=== PATIENT | male | born 1970 | race Two or more races ===

== ENCOUNTER 2017-06-23 10:01 | Emergency (ER) | payer MEDICAID, OTHER ==
[~2017-06-23] VITALS: Ht 170.2 cm; Wt 80.7 kg
[2017-06-23 10:37] VITALS: BP 138/88
[2017-06-23 11:40] LABS: Basophils # (auto) 0 uL; Basophils % (auto) 0.3 % (0.0-2.0); Eosinophils # (auto) 0.2 uL; Hematocrit 48.4 % (41.0-53.0); Hemoglobin 16.4 g/dL (13.5-17.5); Lymphocytes # (auto) 2.4 uL; Lymphocytes % (auto) 31.8 % (10.0-50.0); Mean Corpuscular Hemoglobin 30.1 pg (28.0-32.0); Mean Corpuscular Volume 88.7 fL (80.0-100.0); Monocytes # (auto) 0.5 uL; Monocytes % (auto) 6.5 % (0.0-12.0); Neutrophils # (auto) 4.5 uL; Neutrophils % (auto) 59.4 % (37.0-80.0); Platelet Count (auto) 271 10^3/uL (140-450); Red Blood Cells 5.45 10^6/uL (4.5-5.90); Red Cell Distribution Width 13.2 % (11.8-14.3); White Blood Cell 7.6 10^3/uL (4.4-10.8)
[2017-06-23 12:33] LABS: BUN/Creatinine Ratio 16.2; Bilirubin, Total 0.5 mg/dL (0.2-1.0); Calcium 9.5 mg/dL (8.5-10.1); Potassium 4.2 mmol/L (3.5-5.1); Total Protein 8.4 g/dL (6.4-8.2)
== END 2017-06-23 12:58 | disposition home or self-care (01) ==
LOC: ER 10:01
DX: R20.0 Anesthesia of skin (principal); E11.9 Type 2 diabetes mellitus without complications; E78.00 Pure hypercholesterolemia, unspecified; I10 Essential (primary) hypertension; F17.210 Nicotine dependence, cigarettes, uncomplicated
CPT/HCPCS: 36415; 70450; 80053; 85025; 93005

== ENCOUNTER 2023-12-26 14:42 | Inpatient (IN) | payer OTHER ==
[~2023-12-26] VITALS: Ht 170.2 cm; Wt 99.8 kg
[~2023-12-26 14:42] MED LIST: DAPA5TAB2 PO; DICY10CA PO; LEVO500T91 PO; SIMV20TA20 PO; ZOFR4T PO
[2023-12-26] MEDS: HYDROcodone-ACET 10/325MG TAB PO ONE (15:53)
[2023-12-26] MEDS: SODIUM CHLORIDE 0.9% 2,000 ML IV ONE (16:18)
[2023-12-26 16:32] LABS: Basophils # (auto) 0 10 ^3/uL (0-0.2); Basophils % (auto) 0.2 % (0.0-2.0); Eosinophils # (auto) 0 10 ^3/uL (0-0.8); Hematocrit 37.9 % (41.0-53.0); Hemoglobin 12.5 g/dL (13.5-17.5); Lymphocytes # (auto) 0.9 10 ^3/uL (0.4-5.4); Lymphocytes % (auto) 5.2 % (10.0-50.0); Mean Corpuscular Hemoglobin 29.4 pg (28.0-32.0); Mean Corpuscular Volume 88.8 fL (80.0-100.0); Monocytes # (auto) 0.4 10 ^3/uL (0-1.3); Monocytes % (auto) 2.3 % (0.0-12.0); Neutrophils # (auto) 15.8 10 ^3/uL (1.6-8.6); Neutrophils % (auto) 92.3 % (37.0-80.0); Platelet Count (auto) 419 10^3/uL (140-450); Red Blood Cells 4.27 10^6/uL (4.5-5.90); Red Cell Distribution Width 14.3 % (11.8-14.3); White Blood Cell 17.1 10^3/uL (4.4-10.8)
[2023-12-26 16:49] LABS: Urine Bacteria FEW /hpf (None Seen); Urine Blood 2+ /uL (Negative); Urine Clarity Turbid (Clear); Urine Color Light-Orange (Yellow); Urine Mucus FEW (None Seen); Urine Protein, UAD 4+ (Negative); Urine Specific Gravity 1.041 (1.001-1.035); Urine Urobilinogen Normal (Negative); Urine WBC 5 /hpf (0 - 3)
[2023-12-26 16:53] LABS: Albumin 3.9 g/dL (3.2-4.8); Alkaline Phosphatase 127 U/L (46-116); Anion Gap 7 (5-15); Aspartate Aminotransferase 11 U/L (13-40); BUN/Creatinine Ratio 9.7 (10.0-20.0); Blood Urea Nitrogen 17 mg/dL (9-23); Carbon Dioxide 21 mmol/L (20-30); Chloride 102 mmol/L (98-107); Glucose 291 mg/dL (74-106); Lipase 28 U/L (12-53); Potassium 4.3 mmol/L (3.5-5.1); Sodium 130 mmol/L (136-145)
[2023-12-26 16:54] LABS: Bilirubin, Total 0.9 mg/dL (0.2-1.0); Total Protein 7.5 g/dL (5.7-8.2)
[2023-12-26 17:00] LABS: Alanine Aminotransferase < 9 U/L (7-40)
[2023-12-26] MEDS: PIPERACILLIN-TAZOB 3.375GM 100 ML IV ONE (17:41)
[2023-12-26] MEDS: SODIUM CHLORIDE 0.9% 1,000 ML IV ONE (18:30)
[2023-12-26] MEDS: IOHEXOL 300 MG/ML 100ML BOTTLE IJ ONE (19:52)
[2023-12-26] MEDS: SODIUM BICARB 8.4% 50Meq/50ml SYR Vial IV ONE (21:12)
[2023-12-26] MEDS ORDERED: ACETAMINOPHEN 325 MG TAB PO PRN (22:30)
[2023-12-26] MEDS ORDERED: DEXTROSE (50%) 50ML SYRG IV PRN (22:30)
[2023-12-26] MEDS: SODIUM CHLORIDE 0.9% 1,000 ML IV SCH (22:45)
[2023-12-26] MEDS: HYDROcodone-ACET 5/325MG TAB PO PRN (22:58)
[2023-12-26] MEDS ORDERED: MORPHINE SULFATE INJ 2 MG/ml SYRG IV PRN (23:45)
[2023-12-26] MEDS ORDERED: NITROGLYCERIN 0.4 MG SL TAB SL PRN (23:45)
[2023-12-27] VITALS (8 sets, daily range): BP systolic 123–148; BP diastolic 59–66; PULSE 87–96; RESP 16–20; TEMP 96.8–99.4; O2SAT 90–96
[2023-12-27] MEDS: PIPERACILLIN-TAZOB 3.375GM 100 ML IV SCH (02:22)
[2023-12-27 05:35] LABS: Basophils # (auto) 0 10 ^3/uL (0-0.2); Basophils % (auto) 0.2 % (0.0-2.0); Eosinophils # (auto) 0 10 ^3/uL (0-0.8); Hematocrit 32.3 % (41.0-53.0); Lymphocytes # (auto) 1.1 10 ^3/uL (0.4-5.4); Lymphocytes % (auto) 6.1 % (10.0-50.0); Mean Corpuscular Hemoglobin 30.3 pg (28.0-32.0); Mean Corpuscular Volume 89.1 fL (80.0-100.0); Monocytes # (auto) 0.6 10 ^3/uL (0-1.3); Monocytes % (auto) 3.3 % (0.0-12.0); Neutrophils # (auto) 16.6 10 ^3/uL (1.6-8.6); Neutrophils % (auto) 90.4 % (37.0-80.0); Platelet Count (auto) 352 10^3/uL (140-450); Red Blood Cells 3.63 10^6/uL (4.5-5.90); Red Cell Distribution Width 14.3 % (11.8-14.3); White Blood Cell 18.3 10^3/uL (4.4-10.8)
[2023-12-27 05:54] LABS: Albumin 3.4 g/dL (3.2-4.8); Alkaline Phosphatase 110 U/L (46-116); Anion Gap 4 (5-15); Aspartate Aminotransferase 10 U/L (13-40); Blood Urea Nitrogen 22 mg/dL (9-23); Calcium 8.7 mg/dL (8.7-10.4); Carbon Dioxide 26 mmol/L (20-30); Chloride 103 mmol/L (98-107); Glucose 252 mg/dL (74-106); Potassium 4.6 mmol/L (3.5-5.1); Sodium 133 mmol/L (136-145)
[2023-12-27 05:55] LABS: Bilirubin, Total 0.7 mg/dL (0.2-1.0); Total Protein 6.6 g/dL (5.7-8.2)
[2023-12-27 06:01] LABS: Alanine Aminotransferase < 9 U/L (7-40)
[2023-12-27] MEDS: InsuLIN REG 1unit/0.01ml Soln (100units/ml) SC SCH ×2 (07:00→21:24)
[2023-12-27] MEDS: ACCU-CHEK COMFORT CURVE STRIP VI SCH (07:29)
[2023-12-27] MEDS ORDERED: AMLO1TAB23 PO (11:31)
[2023-12-27] MEDS ORDERED: SILD100T73 PO (11:31)
[2023-12-27] MEDS ORDERED: METF-372 PO (11:31)
[2023-12-27] MEDS ORDERED: GLIP10TA9 PO (11:31)
[2023-12-27] MEDS ORDERED: ATE50T PO (11:31)
[2023-12-27] MEDS ORDERED: PIOG1TAB37 PO (11:31)
[2023-12-27] MEDS ORDERED: DAPA1TAB4 PO (11:31)
[2023-12-27] MEDS ORDERED: LISI40TA16 PO (11:31)
[2023-12-27] MEDS: SODIUM CHLORIDE 0.9% 1,000 ML IV SCH (15:42)
[2023-12-28] VITALS (9 sets, daily range): BP systolic 97–136; BP diastolic 65–69; PULSE 75–105; RESP 16–22; TEMP 97.9–99.6; O2SAT 93–97
[2023-12-28 07:21] LABS: Basophils # (auto) 0 10 ^3/uL (0-0.2); Basophils % (auto) 0.2 % (0.0-2.0); Eosinophils # (auto) 0 10 ^3/uL (0-0.8); Eosinophils % (auto) 0.2 % (0.0-7.0); Hematocrit 29.7 % (41.0-53.0); Hemoglobin 9.7 g/dL (13.5-17.5); Lymphocytes # (auto) 0.9 10 ^3/uL (0.4-5.4); Lymphocytes % (auto) 5.7 % (10.0-50.0); Mean Corpuscular Hemoglobin 29.1 pg (28.0-32.0); Mean Corpuscular Hgb Conc. 32.8 g/dL (32.0-36.0); Mean Corpuscular Volume 88.7 fL (80.0-100.0); Monocytes # (auto) 0.4 10 ^3/uL (0-1.3); Monocytes % (auto) 2.5 % (0.0-12.0); Neutrophils # (auto) 15.3 10 ^3/uL (1.6-8.6); Neutrophils % (auto) 91.4 % (37.0-80.0); Nucleated Red Blood Cells % 0.1 %; Platelet Count (auto) 357 10^3/uL (140-450); Red Blood Cells 3.35 10^6/uL (4.5-5.90); Red Cell Distribution Width 14.2 % (11.8-14.3); White Blood Cell 16.7 10^3/uL (4.4-10.8)
[2023-12-28 07:23] LABS: Albumin 3.2 g/dL (3.2-4.8); Alkaline Phosphatase 95 U/L (46-116); Anion Gap 7 (5-15); Aspartate Aminotransferase 9 U/L (13-40); BUN/Creatinine Ratio 11.6 (10.0-20.0); Bilirubin, Total 0.5 mg/dL (0.2-1.0); Blood Urea Nitrogen 27 mg/dL (9-23); Calcium 8.2 mg/dL (8.7-10.4); Carbon Dioxide 22 mmol/L (20-30); Chloride 104 mmol/L (98-107); Glucose 241 mg/dL (74-106); Sodium 133 mmol/L (136-145); Total Protein 6.4 g/dL (5.7-8.2)
[2023-12-28 07:24] LABS: Alanine Aminotransferase < 9 U/L (7-40)
[2023-12-28 09:04] LABS: INR 1.1 (0.9-1.15); Partial Thromboplastin Time 27.1 SEC (24.5-34.5); Prothrombin Time 11.6 sec (9.3-11.8)
[2023-12-28] MEDS: PANTOPRAZOLE 40 MG/10 ML VIAL INJ IV SCH (10:13)
[2023-12-28] MEDS: HYDROcodone-ACET 10/325MG TAB PO PRN (10:19)
[2023-12-28] MEDS: AMIODARONE BOLUS KIT 100 ML IV ONE (13:52)
[2023-12-28] MEDS: AMIODARONE 450mg/250ml AE 250 ML IV SCH ×2 (14:06→20:01)
[2023-12-29] VITALS (7 sets, daily range): BP systolic 112–149; BP diastolic 60–72; PULSE 59–115; RESP 15–19; TEMP 97.9–98.7; O2SAT 94–98
[2023-12-29 06:06] LABS: Basophils # (auto) 0 10 ^3/uL (0-0.2); Basophils % (auto) 0.3 % (0.0-2.0); Eosinophils # (auto) 0.3 10 ^3/uL (0-0.8); Eosinophils % (auto) 2.2 % (0.0-7.0); Hematocrit 31.1 % (41.0-53.0); Hemoglobin 10.2 g/dL (13.5-17.5); Lymphocytes # (auto) 0.9 10 ^3/uL (0.4-5.4); Lymphocytes % (auto) 5.9 % (10.0-50.0); Mean Corpuscular Hemoglobin 29.6 pg (28.0-32.0); Mean Corpuscular Hgb Conc. 32.7 g/dL (32.0-36.0); Mean Corpuscular Volume 90.7 fL (80.0-100.0); Monocytes # (auto) 0.5 10 ^3/uL (0-1.3); Monocytes % (auto) 3.5 % (0.0-12.0); Neutrophils % (auto) 88.1 % (37.0-80.0); Platelet Count (auto) 438 10^3/uL (140-450); Red Blood Cells 3.43 10^6/uL (4.5-5.90); White Blood Cell 15.8 10^3/uL (4.4-10.8)
[2023-12-29 06:25] LABS: Albumin 3.4 g/dL (3.2-4.8); Alkaline Phosphatase 103 U/L (46-116); Anion Gap 3 (5-15); Aspartate Aminotransferase 12 U/L (13-40); BUN/Creatinine Ratio 10.4 (10.0-20.0); Bilirubin, Total 0.4 mg/dL (0.2-1.0); Blood Urea Nitrogen 26 mg/dL (9-23); Calcium 9.1 mg/dL (8.7-10.4); Carbon Dioxide 23 mmol/L (20-30); Chloride 106 mmol/L (98-107); Glucose 216 mg/dL (74-106); Potassium 4.4 mmol/L (3.5-5.1); Sodium 132 mmol/L (136-145); Total Protein 6.9 g/dL (5.7-8.2)
[2023-12-29 06:26] LABS: Alanine Aminotransferase < 9 U/L (7-40)
[2023-12-29] MEDS: AMIODARONE HCL 200 MG TAB PO SCH (10:09)
[2023-12-29] MEDS: D5W/SOD CHLO 0.9% 1,000 ML IV SCH (12:59)
[2023-12-30] VITALS (8 sets, daily range): BP systolic 125–154; BP diastolic 60–75; PULSE 65–73; RESP 17–22; TEMP 97.7–98; O2SAT 93–97
[2023-12-30] MEDS: PIPERACILLIN-TAZOB 3.375GM 100 ML IV SCH (04:32)
[2023-12-30 06:29] LABS: Basophils # (auto) 0 10 ^3/uL (0-0.2); Basophils % (auto) 0.3 % (0.0-2.0); Eosinophils # (auto) 0.4 10 ^3/uL (0-0.8); Eosinophils % (auto) 3.3 % (0.0-7.0); Hematocrit 29.4 % (41.0-53.0); Hemoglobin 9.5 g/dL (13.5-17.5); Lymphocytes % (auto) 9.1 % (10.0-50.0); Mean Corpuscular Hemoglobin 29.2 pg (28.0-32.0); Mean Corpuscular Hgb Conc. 32.3 g/dL (32.0-36.0); Mean Corpuscular Volume 90.4 fL (80.0-100.0); Monocytes # (auto) 0.8 10 ^3/uL (0-1.3); Monocytes % (auto) 7.1 % (0.0-12.0); Neutrophils # (auto) 8.9 10 ^3/uL (1.6-8.6); Neutrophils % (auto) 80.2 % (37.0-80.0); Platelet Count (auto) 417 10^3/uL (140-450); Red Blood Cells 3.25 10^6/uL (4.5-5.90); Red Cell Distribution Width 14.7 % (11.8-14.3); White Blood Cell 11.1 10^3/uL (4.4-10.8)
[2023-12-30 06:47] LABS: Alkaline Phosphatase 80 U/L (46-116); Anion Gap 6 (5-15); Aspartate Aminotransferase < 8 U/L (13-40); Bilirubin, Total 0.4 mg/dL (0.2-1.0); Blood Urea Nitrogen 25 mg/dL (9-23); Calcium 8.6 mg/dL (8.7-10.4); Carbon Dioxide 23 mmol/L (20-30); Chloride 107 mmol/L (98-107); Glucose 161 mg/dL (74-106); Potassium 3.9 mmol/L (3.5-5.1); Sodium 136 mmol/L (136-145); Total Protein 6.4 g/dL (5.7-8.2)
[2023-12-30 07:03] LABS: Alanine Aminotransferase < 9 U/L (7-40)
[2023-12-30 08:12] LABS: Creatinine, Urine 115.37 mg/dL (30.0-125.0)
[2023-12-30 08:15] LABS: Protein, Urine 607.3 mg/dL (0.0-11.9)
[2023-12-30 11:51] LABS: COVID19 ANTIGEN SOFIA FIA NEGATIVE (NEGATIVE)
[2023-12-30 14:34] LABS: Urine Bacteria None Seen /hpf (None Seen)
[2023-12-30 14:45] LABS: Urine Blood 1+ /uL (Negative); Urine Clarity Turbid (Clear); Urine Color Yellow (Yellow); Urine Protein, UAD 3+ (Negative); Urine Specific Gravity 1.021 (1.001-1.035); Urine Urobilinogen Normal (Negative); Urine WBC 8 /hpf (0 - 3)
[2023-12-30] MEDS: FUROSEMIDE 40 MG/4 ML VIAL IV ONE (16:16)
[2023-12-31] VITALS (10 sets, daily range): BP systolic 140–178; BP diastolic 64–85; PULSE 66–83; RESP 16–20; TEMP 97.8–98.6; O2SAT 95–100
[2023-12-31 06:14] LABS: Mean Corpuscular Volume 89.4 fL (80.0-100.0); Monocytes # (auto) 0.9 10 ^3/uL (0-1.3)
[2023-12-31 06:16] LABS: Basophils # (auto) 0.1 10 ^3/uL (0-0.2); Basophils % (auto) 0.5 % (0.0-2.0); Eosinophils # (auto) 0.4 10 ^3/uL (0-0.8); Eosinophils % (auto) 3.1 % (0.0-7.0); Hemoglobin 11.2 g/dL (13.5-17.5); Lymphocytes # (auto) 1.2 10 ^3/uL (0.4-5.4); Mean Corpuscular Hemoglobin 29.4 pg (28.0-32.0); Mean Corpuscular Hgb Conc. 32.9 g/dL (32.0-36.0); Monocytes % (auto) 7.5 % (0.0-12.0); Neutrophils # (auto) 9.7 10 ^3/uL (1.6-8.6); Neutrophils % (auto) 78.9 % (37.0-80.0); Platelet Count (auto) 477 10^3/uL (140-450); Red Cell Distribution Width 15.1 % (11.8-14.3); White Blood Cell 12.3 10^3/uL (4.4-10.8)
[2023-12-31 06:39] LABS: Albumin 3.3 g/dL (3.2-4.8); Alkaline Phosphatase 86 U/L (46-116); Anion Gap 7 (5-15); Aspartate Aminotransferase 10 U/L (13-40); BUN/Creatinine Ratio 9.2 (10.0-20.0); Bilirubin, Total 0.4 mg/dL (0.2-1.0); Blood Urea Nitrogen 22 mg/dL (9-23); Calcium 9.2 mg/dL (8.7-10.4); Carbon Dioxide 23 mmol/L (20-30); Chloride 103 mmol/L (98-107); Glucose 141 mg/dL (74-106); Sodium 133 mmol/L (136-145); Total Protein 7.1 g/dL (5.7-8.2)
[2023-12-31 06:49] LABS: Alanine Aminotransferase < 9 U/L (7-40)
[2023-12-31 08:06] LABS: Complement C3 147 mg/dL (82-167)
[2023-12-31] MEDS: POLYETHYLENE GLYCOL 17 GM PWDR PO ONE (09:58)
[2023-12-31] MEDS: FUROSEMIDE 40 MG/4 ML VIAL IV SCH (10:00)
[2023-12-31] MEDS: LIDOCAINE 5% TOPICAL PATCH TOP ONE (12:53)
[2023-12-31 14:06] LABS: Anti-Centromere B Antibody <0.2 AI (0.0-0.9); Anti-Jo-1 Antibody <0.2 AI (0.0-0.9); Anti-dsDNA Antibody <1 IU/mL (0-9); Antichromatin Antibody <0.2 AI (0.0-0.9); Antiscleroderma-70 Antibody <0.2 AI (0.0-0.9); RNP Antibody <0.2 AI (0.0-0.9); Sjogren's Anti-SS-A Antibody <0.2 AI (0.0-0.9); Sjogren's Anti-SS-B Antibody <0.2 AI (0.0-0.9); Smith Antibody <0.2 AI (0.0-0.9)
[2024-01-01] VITALS (8 sets, daily range): BP systolic 125–157; BP diastolic 59–72; PULSE 69–83; RESP 16–21; TEMP 97.5–98.7; O2SAT 92–99
[2024-01-01 06:13] LABS: Hematocrit 32.2 % (41.0-53.0); Hemoglobin 10.5 g/dL (13.5-17.5); Mean Corpuscular Hgb Conc. 32.6 g/dL (32.0-36.0); Mean Corpuscular Volume 88.8 fL (80.0-100.0); Platelet Count (auto) 439 10^3/uL (140-450); Red Blood Cells 3.62 10^6/uL (4.5-5.90); Red Cell Distribution Width 14.8 % (11.8-14.3)
[2024-01-01 06:14] LABS: Albumin 2.9 g/dL (3.2-4.8); Alkaline Phosphatase 71 U/L (46-116); Anion Gap 8 (5-15); Aspartate Aminotransferase 8 U/L (13-40); BUN/Creatinine Ratio 9.3 (10.0-20.0); Bilirubin, Total 0.4 mg/dL (0.2-1.0); Blood Urea Nitrogen 21 mg/dL (9-23); Calcium 8.7 mg/dL (8.7-10.4); Carbon Dioxide 24 mmol/L (20-30); Chloride 101 mmol/L (98-107); Glucose 136 mg/dL (74-106); Potassium 3.8 mmol/L (3.5-5.1); Sodium 133 mmol/L (136-145); Total Protein 6.4 g/dL (5.7-8.2)
[2024-01-01 06:16] LABS: Alanine Aminotransferase < 9 U/L (7-40)
[2024-01-01 06:22] LABS: Basophils % (manual) 0 (0.0-2.0); Blast Cells 0; Metamyelocytes % 0; Myelocytes % 0; Promyelocytes % 0; Reactive Lymphocytes 0
[2024-01-01 08:09] LABS: Band Neutrophils % (manual) 8; Eosinophils % (manual) 2 (0-7); Lymphocytes % (manual) 14 (10.0-50.0); Monocytes % (manual) 9 (0-12); Platelet Estimate Adequate
[2024-01-01] MEDS: LIDOCAINE 5% TOPICAL PATCH TOP SCH (09:40)
[2024-01-01] MEDS: POLYETHYLENE GLYCOL 17 GM PWDR PO PRN (12:13)
[2024-01-01] MEDS: LACTULOSE 20Gm/30ML SOLN PO ONE (18:03)
[2024-01-01 18:06] LABS: Antiglomerular BM Antibody <0.2 units (0.0-0.9); Antimyeloperoxidase (MPO) Ab <0.2 units (0.0-0.9); Antiproteinase 3 (PR-3) Ab <0.2 units (0.0-0.9)
[2024-01-02] VITALS (7 sets, daily range): BP systolic 127–163; BP diastolic 60–72; PULSE 19–102; RESP 18–20; TEMP 97.7–98.5; O2SAT 96–100
[2024-01-02] MEDS: ONDANSETRON HCL 4 MG/2 ML VIAL IV PRN (04:18)
[2024-01-02] MEDS: cloNIDine HCL 0.1 MG TAB PO PRN (04:19)
[2024-01-02 06:11] LABS: Hemoglobin 10.6 g/dL (13.5-17.5)
[2024-01-02 06:13] LABS: Hematocrit 32.4 % (41.0-53.0); Mean Corpuscular Hgb Conc. 32.7 g/dL (32.0-36.0); Mean Corpuscular Volume 88.6 fL (80.0-100.0); Platelet Count (auto) 450 10^3/uL (140-450); Red Blood Cells 3.65 10^6/uL (4.5-5.90)
[2024-01-02 06:17] LABS: Basophils % (manual) 0 (0.0-2.0); Blast Cells 0; Metamyelocytes % 0; Myelocytes % 0; Promyelocytes % 0; Reactive Lymphocytes 0
[2024-01-02 06:18] LABS: Albumin 3.1 g/dL (3.2-4.8); Alkaline Phosphatase 67 U/L (46-116); Anion Gap 7 (5-15); Aspartate Aminotransferase < 8 U/L (13-40); Blood Urea Nitrogen 17 mg/dL (9-23); Calcium 8.8 mg/dL (8.7-10.4); Carbon Dioxide 25 mmol/L (20-30); Chloride 100 mmol/L (98-107); Glucose 156 mg/dL (74-106); Potassium 3.8 mmol/L (3.5-5.1); Sodium 132 mmol/L (136-145)
[2024-01-02 06:19] LABS: Bilirubin, Total 0.4 mg/dL (0.2-1.0); Total Protein 6.6 g/dL (5.7-8.2)
[2024-01-02 06:23] LABS: Alanine Aminotransferase < 9 U/L (7-40)
[2024-01-02 06:42] LABS: Band Neutrophils % (manual) 4; Eosinophils % (manual) 4 (0-7); Lymphocytes % (manual) 11 (10.0-50.0); Monocytes % (manual) 5 (0-12); Platelet Estimate Adequate
[2024-01-02 13:07] LABS: Cytoplasmic (C-ANCA) <1:20 titer (Neg:<1:20); Perinuclear (P-ANCA) <1:20 titer (Neg:<1:20)
[2024-01-02] MEDS: TAMSULOSIN HYDROCHLORIDE 0.4 MG CAP PO SCH (17:43)
[2024-01-02] MEDS: DOCUSATE SOD 100 MG CAP PO PRN (17:54)
[2024-01-03] VITALS (7 sets, daily range): BP systolic 133–145; BP diastolic 65–88; PULSE 71–106; RESP 16–20; TEMP 97.7–98.9; O2SAT 94–97
[2024-01-03 06:05] LABS: Hemoglobin 11.2 g/dL (13.5-17.5)
[2024-01-03 06:09] LABS: Hematocrit 33.1 % (41.0-53.0); Mean Corpuscular Hemoglobin 29.9 pg (28.0-32.0); Mean Corpuscular Hgb Conc. 33.8 g/dL (32.0-36.0); Mean Corpuscular Volume 88.5 fL (80.0-100.0); Platelet Count (auto) 462 10^3/uL (140-450); Red Blood Cells 3.74 10^6/uL (4.5-5.90); Red Cell Distribution Width 14.6 % (11.8-14.3); White Blood Cell 11.3 10^3/uL (4.4-10.8)
[2024-01-03 06:10] LABS: Band Neutrophils % (manual) 0; Basophils % (manual) 0 (0.0-2.0); Blast Cells 0; Metamyelocytes % 0; Myelocytes % 0; Promyelocytes % 0; Reactive Lymphocytes 0
[2024-01-03 06:28] LABS: Albumin 3.1 g/dL (3.2-4.8); Alkaline Phosphatase 68 U/L (46-116); Anion Gap 9 (5-15); Aspartate Aminotransferase < 8 U/L (13-40); BUN/Creatinine Ratio 8.9 (10.0-20.0); Bilirubin, Total 0.4 mg/dL (0.2-1.0); Blood Urea Nitrogen 18 mg/dL (9-23); Carbon Dioxide 25 mmol/L (20-30); Chloride 97 mmol/L (98-107); Glucose 136 mg/dL (74-106); Potassium 3.5 mmol/L (3.5-5.1); Sodium 131 mmol/L (136-145); Total Protein 6.9 g/dL (5.7-8.2)
[2024-01-03 06:33] LABS: Alanine Aminotransferase < 9 U/L (7-40)
[2024-01-03 07:07] LABS: Eosinophils % (manual) 2 (0-7); Lymphocytes % (manual) 11 (10.0-50.0); Monocytes % (manual) 11 (0-12); Platelet Estimate Adequate
[2024-01-03] MEDS: LACTULOSE 20Gm/30ML SOLN PO ONE (11:57)
[2024-01-03] MEDS: DOCUSATE SOD 100 MG CAP PO ONE (11:57)
[2024-01-03] MEDS: LACTULOSE 20Gm/30ML SOLN PO SCH (22:00)
[2024-01-03] MEDS: DOCUSATE SOD 100 MG CAP PO SCH (22:00)
[2024-01-04] VITALS (9 sets, daily range): BP systolic 125–150; BP diastolic 61–87; PULSE 72–88; RESP 16–20; TEMP 97.8–98.5; O2SAT 92–97
[2024-01-04 06:17] LABS: Mean Corpuscular Hgb Conc. 33.5 g/dL (32.0-36.0)
[2024-01-04 06:21] LABS: Hematocrit 35.1 % (41.0-53.0); Hemoglobin 11.7 g/dL (13.5-17.5); Mean Corpuscular Hemoglobin 29.5 pg (28.0-32.0); Platelet Count (auto) 452 10^3/uL (140-450); Red Blood Cells 3.98 10^6/uL (4.5-5.90); Red Cell Distribution Width 14.9 % (11.8-14.3); White Blood Cell 10.2 10^3/uL (4.4-10.8)
[2024-01-04 06:23] LABS: Basophils % (manual) 0 (0.0-2.0); Blast Cells 0; Promyelocytes % 0; Reactive Lymphocytes 0
[2024-01-04 06:38] LABS: Albumin 3.3 g/dL (3.2-4.8); Alkaline Phosphatase 73 U/L (46-116); Anion Gap 9 (5-15); Aspartate Aminotransferase 8 U/L (13-40); BUN/Creatinine Ratio 8.7 (10.0-20.0); Bilirubin, Total 0.4 mg/dL (0.2-1.0); Blood Urea Nitrogen 17 mg/dL (9-23); Calcium 9.3 mg/dL (8.7-10.4); Carbon Dioxide 25 mmol/L (20-30); Chloride 96 mmol/L (98-107); Glucose 173 mg/dL (74-106); Potassium 3.5 mmol/L (3.5-5.1); Sodium 130 mmol/L (136-145); Total Protein 7.2 g/dL (5.7-8.2)
[2024-01-04 06:50] LABS: Alanine Aminotransferase < 9 U/L (7-40)
[2024-01-04 08:37] LABS: Band Neutrophils % (manual) 6; Eosinophils % (manual) 5 (0-7); Lymphocytes % (manual) 11 (10.0-50.0); Metamyelocytes % 1; Monocytes % (manual) 10 (0-12); Myelocytes % 1
[2024-01-04 08:38] LABS: Platelet Estimate Increased; RBC Morphology Normal
[2024-01-04] MEDS: PANTOPRAZOLE 40 MG/10 ML VIAL INJ IV SCH (09:37)
[2024-01-04] MEDS ORDERED: AMIO200T33 PO (15:51)
[2024-01-04] MEDS ORDERED: FURO1TAB31 PO (15:52)
[2024-01-04] MEDS ORDERED: PANT40T PO (15:54)
[2024-01-05 01:00] VITALS: BP 140/65; PULSE 78; RESP 16; TEMP 98.1; O2SAT 94
[2024-01-05 05:00] VITALS: BP 156/67; PULSE 75; RESP 16; TEMP 97.9; O2SAT 96
[2024-01-05 08:00] VITALS: PULSE 68; PULSE 73; RESP 18; O2SAT 95
[2024-01-05 09:11] VITALS: BP 150/71; PULSE 73; RESP 18; TEMP 97.9; O2SAT 95
[2024-01-05] MEDS ORDERED: ACETAMINOPHEN 325 MG TAB PO PRN (12:30)
[2024-01-05] MEDS ORDERED: FURO1TAB31 PO (13:20)
[2024-01-05 13:43] VITALS: BP 141/68; PULSE 76
== END 2024-01-05 14:03 | disposition home or self-care (01) | DRG 663 ==
LOC: ER 14:42 → TELE 23:35 → TELE-E-ADS 12-27 08:34
PROVIDERS: ADMIT Nurse Practitioner Family; ATTEND Family Medicine
DX: S36.029A Unspecified contusion of spleen, initial encounter (principal); J96.01 Acute respiratory failure with hypoxia; N17.0 Acute kidney failure with tubular necrosis; I21.4 Non-ST elevation (NSTEMI) myocardial infarction; J18.9 Pneumonia, unspecified organism; E87.1 Hypo-osmolality and hyponatremia; D62 Acute posthemorrhagic anemia; E11.22 Type 2 diabetes mellitus with diabetic chronic kidney disease; I48.91 Unspecified atrial fibrillation; E11.65 Type 2 diabetes mellitus with hyperglycemia; E78.00 Pure hypercholesterolemia, unspecified; F17.210 Nicotine dependence, cigarettes, uncomplicated; I12.9 Hypertensive chronic kidney disease with stage 1 through stage 4 chronic kidney disease, or unspecified chronic kidney disease; N18.9 Chronic kidney disease, unspecified; E66.01 Morbid (severe) obesity due to excess calories; K59.00 Constipation, unspecified; Z79.4 Long term (current) use of insulin; Z83.3 Family history of diabetes mellitus; Z82.49 Family history of ischemic heart disease and other diseases of the circulatory system; X58.XXXA Exposure to other specified factors, initial encounter; Y93.9 Activity, unspecified; Y92.89 Other specified places as the place of occurrence of the external cause; Y99.8 Other external cause status; Z68.35 Body mass index [BMI] 35.0-35.9, adult
CPT/HCPCS: 36415; 71045; 74176; 74177; 76705; 76775; 78278; 80053; 81001; 82570; 82962; 83036; 83516; 83520; 83605; 83690; 83880; 84156; 84300; 84484; 85007; 85025; 85027; 85610; 85730; 86160; 86225; 86235; 86256; 86850; 86900; 86901; 87040; 87086; 87426; 93005; 93306; 96361; 96365; 97110; 97116; 97163; 97530; A9560; G0378; J1815; J2405; J2470; J2543

== ENCOUNTER 2024-06-09 19:54 | Inpatient (IN) | payer MEDICAID, OTHER ==
[~2024-06-09] VITALS: Ht 175.3 cm; Wt 92.1 kg
[~2024-06-09 19:54] MED LIST changes: +AMIO200T33 PO; -DAPA5TAB2 PO; -DICY10CA PO; +FURO1TAB31 PO; +GLIP10TA9 PO; -LEVO500T91 PO; +METF-372 PO; +PANT40T PO; +SILD100T73 PO; -ZOFR4T PO
[2024-06-09 20:54] LABS: Basophils # (auto) 0 10 ^3/uL (0-0.2); Basophils % (auto) 0.6 % (0.0-2.0); Eosinophils # (auto) 0.3 10 ^3/uL (0-0.8); Eosinophils % (auto) 3.6 % (0.0-7.0); Hematocrit 39.9 % (41.0-53.0); Hemoglobin 13.4 g/dL (13.5-17.5); Lymphocytes # (auto) 2.9 10 ^3/uL (0.4-5.4); Mean Corpuscular Hemoglobin 29.6 pg (28.0-32.0); Mean Corpuscular Hgb Conc. 33.5 g/dL (32.0-36.0); Mean Corpuscular Volume 88.4 fL (80.0-100.0); Monocytes # (auto) 0.5 10 ^3/uL (0-1.3); Monocytes % (auto) 6.1 % (0.0-12.0); Neutrophils # (auto) 4.2 10 ^3/uL (1.6-8.6); Neutrophils % (auto) 52.7 % (37.0-80.0); Nucleated Red Blood Cells % 0.1 %; Platelet Count (auto) 239 10^3/uL (140-450); Red Blood Cells 4.52 10^6/uL (4.5-5.90); Red Cell Distribution Width 14.4 % (11.8-14.3); White Blood Cell 7.9 10^3/uL (4.4-10.8)
[2024-06-09 21:09] LABS: Alanine Aminotransferase 10 U/L (7-40); Alkaline Phosphatase 74 U/L (46-116); Anion Gap 8 (5-15); Calcium 9.7 mg/dL (8.7-10.4); Carbon Dioxide 23 mmol/L (20-31); Chloride 107 mmol/L (98-107); Magnesium 1.9 mg/dL (1.6-2.6); Potassium 4.7 mmol/L (3.5-5.1); Sodium 138 mmol/L (136-145)
[2024-06-09 21:10] LABS: Aspartate Aminotransferase 13 U/L (13-40); Bilirubin, Total 0.2 mg/dL (0.2-1.0); Blood Urea Nitrogen 29 mg/dL (9-23); Glucose 189 mg/dL (74-106); Total Protein 7.1 g/dL (5.7-8.2)
[2024-06-09 21:14] LABS: Urine Bacteria None Seen /hpf (None Seen)
[2024-06-09 21:25] LABS: Urine Blood TRACE /uL (Negative); Urine Clarity Clear (Clear); Urine Color Light-Yellow (Yellow); Urine Protein, UAD 3+ (Negative); Urine Specific Gravity 1.018 (1.001-1.035); Urine Squamous Epithelial Cell FEW /hpf (<5); Urine Urobilinogen Normal (Negative); Urine WBC < 1 /HPF (0-3)
--- NOTE | 2024-06-09 21:54 | ED.PDOC ---
GI ASSESSMENT HPI Comments HPI: 54-year-old male presents with a chief complaint of abdominal pain x 2 weeks. Patient states that his pain is localized to his LUQ, nonradiating, describes as stabbing sensation, and rates his pain a 6/10. Patient mentions that he had a splenic hematoma in February 2024 after coming back from travelling [place] his [place]. Patient mentions that he spent 3 weeks inpatient until he was discharged and told that it was gone. Patient mentions that up until that point he was a heavy cigarette smoker. Patient reports that his abdominal pain began spontaneously and denies any injuries or trauma prior to onset of symptoms. PMHx: Splenic Hematoma, HTN, HLD, DM PSHx: None Allergies: No Known Allergies Initial Vital Signs: BP: 140/70 HR: 89 Temp: 98.7F SpO2: 98% RR: 18 HPI: Poor Historian. Past Medcial History: Past Surgical History: REVIEW OF SYSTEMS: CONSTITUTIONAL: Denies acute: fever, diaphoresis, chills, generalized weakness. HEAD: Denies acute: headache, photophobia Eyes: Denies acute: Double vision, vision loss, eye pain, eye discharge. EARS: Denies acute: tinnitus, hearing loss, ear discharge, ear pain, THROAT: Denies acute: sore throat, swelling, difficulty swallowing , pain with swallowing, change in voice. NECK: Denies acute: neck pain, neck swelling, stiff neck. HEART: Denies acute : chest pain, palpitations, LUNGS: Denies acute: SOB, wheezing, cough, hemoptysis ABDOMEN: Denies acute: abdominal pain, Nausea, Vomiting, diarrhea, melena , hematemesis, hematochezia SKIN: Denies acute: rash, redness, lesions, itchiness. EXTREMITIES: Denies acute: calf pain, numbness, tingling, weakness, denies pain in extremity. Denies acute: Low back pain. Neuro: Denies acute: focal neurological deficit, motor or sensory focal neurological deficit, tremors, seizure like activity, confusion, dizziness, change in mental status, loss of bowel or bladder function, cauda equina like symptoms. : Denies acute: dysuria, hematuria, flank pain, increase in urinary frequency. PSYCH: Denies acute: hallucination, suicidal ideation, homicidal ideation. PHYSICAL EXAM: General: no acute distress, awake and alert. Head: normocephalic, atraumatic. Neck: supple, trachea is midline, no swelling. Throat: Normal phonation. Eyes:, no erythema, no purulent discharge, no proptosis, no icterus. Heart: regular rate, regular rhythm, no significant murmur appreciated. Lungs: no apparent respiratory distress, Able to speak in full sentences. No wheezing, no rhonchi, no crackles. No stridors Clear to auscultation bilaterally. Abdomen: non tender to palpation, non distended, soft, no guarding, no rebound, + bowel sounds. Focal area of lower ribcage border at the mid clavicular line focal tenderness t o palpation without any erythema contusion hematoma swelling or crepitus. Neuro: Awake, Alert, oriented to name, self, situation, follows commands GCS=15. Speech is normal. Skin: no petechia, no purpura, no cyanosis, non-pale, not jaundice. Lower extremities: --no - Pitting edema no deformity, no focal swelling, no calf TTP. Makes eye contact. moves all four extremities. Face: no apparent facial droop. Ambulating in the ED independently. Chief Complaint: Abdominal Pain Time Seen by MD: 21:43 Primary Care Provider: UNKNOWN Reviewed Notes: Medications, Allergies Allergies: Coded Allergies: NO KNOWN ALLERGIES (Unverified , 06/23/17) Home Meds Active Scripts Furosemide (Lasix) 40 Mg Tab, 40 MG PO DAILY, #30 TAB Prov:GONZALEZ CRUZ MD 01/05/24 Pantoprazole Sodium Sesquihydr (Pantoprazole Sodium) 40 Mg Tab, 40 MG PO DAILYP PRN for 30 Days, #30 TAB Prov:ZOE BASHIR MD 01/04/24 Amiodarone Hcl (Amiodarone Hcl) 200 Mg Tab, 1 TAB PO DAILY for 30 Days, #30 TAB 1 Refill Prov:ZOE BASHIR MD 01/04/24 Reported Medications Simvastatin (Simvastatin) 20 Mg Tab, 1 TAB PO DAILY for 90 Days, #90 12/27/23 Glipizide (Glipizide) 10 Mg Tab, 1 TAB PO BID 12/27/23 Sildenafil Citrate (Sildenafil Citrate) 100 Mg Tab, 1 TAB PO DAILYPRN PRN for ERECTILE DYSFUNCTION 12/27/23 Metformin Hydrochloride (Metformin Hcl) 1,000 Mg Tab, 1 TAB PO BID 12/27/23 Information Source: Patient Mode of Arrival: Ambulatory Past Medical History PAST MEDICAL HISTORY: DM, High Lipids, HTN Surgical History: Denies all surgeries Family History Family History: Reviewed,noncontributory to illness, No family hx of Cancer, No family hx of DM, No family hx of Heart bhargav, No family hx of HTN, No family hx ofKidney bhargav, No family hx of Liver bhargav, No family hx of Lung bhargav, No family hx of Stroke Social History Smoker: Quit Less Than 1 Year, Cigarettes Alcohol: Denies ETOH Use Drugs: Denies Drug Use Lives In: Home EKG EKG : Pulse Rate (adult): 86 [place]: Normal Cardiac Rhythm: NSR Block: None Hypertrophy: None ST: Normal Was a procedure done? Was a procedure done?: No GI differential Dx Differential Diagnosis: Other (Ddx include but not limitied to gastritis, musculoskeletal pain, radiculopathy, atypical chest pain, dissection, aneurysm, ACS, unstable angina, hiatal hernia, GERD, anxiety, costochondritis, PE, pneumothroax, neoplasm, cardiac ischemia, drug abuse, anemia.) X-Ray, Labs, Meds, VS Vital Signs Date Time Temp Pulse Resp B/P (MAP) Pulse Ox O2 Delivery O2 Flow Rate FiO2 06/09/24 21:54 86 06/09/24 20:19 86 06/09/24 20:05 98.7 89 18 140/70 (93) 98 Lab Test 06/10/24 00:14 06/09/24 21:24 06/09/24 20:33 06/09/24 20:12 Range/Units Uric Acid Pending Creatine Kinase 117 46-171 U/L Troponin I High Sensitivity 5 5 4 </=54 ng/L Triglycerides Level 532 H < 150 mg/dL Cholesterol Level 256 H < 200 mg/dL LDL Cholesterol < 100 mg/dL HDL Cholesterol 43 40-59 mg/dL Lipase Pending White Blood Count 7.9 4.4-10.8 10^3/uL Red Blood Count 4.52 4.5-5.90 10^6/uL Hemoglobin 13.4 L 13.5-17.5 g/dL Hematocrit 39.9 L 41.0-53.0 % Mean Corpuscular Volume 88.4 80.0-100.0 fL Mean Corpuscular Hemoglobin 29.6 28.0-32.0 pg Mean Corpuscular Hemoglobin Concent 33.5 32.0-36.0 g/dL Red Cell Distribution Width 14.4 H 11.8-14.3 % Platelet Count 239 140-450 10^3/uL Mean Platelet Volume 7.6 6.9-10.8 fL Neutrophils (%) (Auto) 52.7 37.0-80.0 % Lymphocytes (%) (Auto) 37.0 10.0-50.0 % Monocytes (%) (Auto) 6.1 0.0-12.0 % Eosinophils (%) (Auto) 3.6 0.0-7.0 % Basophils (%) (Auto) 0.6 0.0-2.0 % Neutrophils # (Auto) 4.2 1.6-8.6 10 ^3/uL Lymphocytes # (Auto) 2.9 0.4-5.4 10 ^3/uL Monocytes # (Auto) 0.5 0-1.3 10 ^3/uL Eosinophils # (Auto) 0.3 0-0.8 10 ^3/uL Basophils # (Auto) 0 0-0.2 10 ^3/uL Nucleated Red Blood Cells 0.1 % Sodium Level 138 136-145 mmol/L Potassium Level 4.7 3.5-5.1 mmol/L Chloride Level 107 98-107 mmol/L Carbon Dioxide Level 23 20-31 mmol/L Anion Gap 8 5-15 Blood Urea Nitrogen 29 H 9-23 mg/dL Creatinine 2.41 H 0.700-1.30 mg/dL Glomerular Filtration Rate Calc 31 >90 mL/min BUN/Creatinine Ratio 12.0 10.0-20.0 Serum Glucose 189 H 74-106 mg/dL Hemoglobin A1c Pending Calcium Level 9.7 8.7-10.4 mg/dL Magnesium Level 1.9 1.6-2.6 mg/dL Total Bilirubin 0.2 0.2-1.0 mg/dL Aspartate Amino Transferase (AST) 13 13-40 U/L Alanine Aminotransferase (ALT) 10 7-40 U/L Alkaline Phosphatase 74 46-116 U/L Total Protein 7.1 5.7-8.2 g/dL Albumin 4.0 3.2-4.8 g/dL HIV (1&2) Antibody Negative Negative Urine Color Light-yellow Yellow Urine Clarity Clear Clear Urine pH 6.0 5.0-9.0 Urine Specific [place] 1.018 1.001-1.035 Urine Protein 3+ H Negative Urine Ketones Negative Negative Urine Blood Trace H Negative /uL Urine Nitrite Negative Negative Urine Bilirubin Negative Negative Urine Urobilinogen Normal Negative mg/dL Urine Leukocyte Esterase Negative Negative /uL Urine RBC 1 0 - 3 /hpf Urine Microscopic WBC < 1 0-3 /HPF Urine Squamous Epithelial Cells Few <5 /hpf Urine Bacteria None seen None Seen /hpf Urine Glucose 4+ H Normal mg/dL Time of 1ST Reevaluation: 22:13 Reevaluation 1ST: Unchanged Patient Education/Counseling: Diagnosis, Treatment, Prognosis Family Education/Counseling: Prognosis, Other Comments Patient presented with the above HPI.---history of abnormal EKGs/arrhythmia and nonspecific left lower ribcage pain---workup was initiated. patient was found with the above mentioned diagnosis. the following medications were ordered: please refer to order lists of meds and tests obtained by myself Dr. Quinn. Patient ED course and VS have been stabilized. Patient has been reassessed in the ED and remained in a stable condition. Pertinent incidental findings were discussed with the patient and/or family. Patient/family voices understanding and is agreeable with plan. Patient has been observed in the ED adequate length of time to insure improvement/stability. Escalation of care considered: Consideration of escalation to observation or admission Patient was ADMITTED to the medicine team for further evaluation and treatment of their presentation. All the reports of any imaging studies that were ordered by myself were reviewed by myself. Departure 1 Departure Time of Disposition: 23:13 Impression: Primary Impression: Acute renal insufficiency Additional Impressions: History of abnormal electrocardiogram Spleen hematoma Disposition: ADMITTED INPATIENT Admit to: Tele Condition: Guarded Discharged With: Self Critical Care Note Critical Care Time?: No I personally scribed for KEM QUINN DO ([email or web address]) on 06/09/24 at 21:54. Electronically submitted by Robbin Green ([email or web address]). KEM QUINN DO Jun 09, 2024 21:54
--- NOTE | 2024-06-09 23:29 | DVH ---
EXAM: XY CHEST PORTABLE CLINICAL HISTORY: LEFT UPPER ABDOMINAL PAIN, ABNORMAL EKG FROM PCP TECHNIQUE: Single AP view of the chest WID: COMPARISON: XY CHEST XRAY 1 VIEW on DOS: 01/05/24 FINDINGS: Lines and tubes: None Chest: The heart size and pulmonary vasculature is within normal limits. No pleural effusion, pneumothorax, or consolidation. The osseous structures are grossly intact. IMPRESSION: No acute cardiopulmonary abnormality.
--- NOTE | 2024-06-09 23:32 | DVH ---
Exam: CT CT AB PEL WITH IV CON ONLY History: h/o spleen hematoma. COMPARISON: CT CT AB PEL WITH IV CON ONLY on DOS: 12/26/23 Technique: Multidetector spiral CT of the abdomen and pelvis was performed from lung bases to pubic s ymphysis. Intravenous contrast was administered during this examination. Portal venous imaging was obtained. Axial, coronal and sagittal multiplanar reformats were performed by the technologist on a separate workstation. Radiation Dose : 1. Abdomen/Pelvis: CTDIvol 20.2 mGy, DLP 1426 mGy*cm. CONTRAST: Type of contrast: Omni 300 Contrast injected: 100 ml Findings: Lung Bases: No acute or significant lung base finding. Normal heart size. No pleural or pericardial effusion. Liver: The liver is normal in size. No focal lesions. Normal hepatic vascular enhancement. Gallbladder and Biliary Tree: Unremarkable Spleen: Interval decrease in size of intra splenic hematoma which now measures up to 1.5 cm, previous ly measuring up to 9 cm. Interval decrease in blood products surrounding the spleen which now measure s up to 1.2 cm, previously measuring up to 13.5 cm. Pancreas: The pancreas is normal in appearance without focal lesions or abnormal enhancement. Adrenal Glands: Unremarkable Kidneys: No hydronephrosis. Bladder: Unremarkable Bowel: The stomach is grossly normal in appearance. Small bowel and colon are normal in caliber and d istribution. Normal appendix is visualized in the right lower quadrant without findings of appendici tis. Ascites: Absent Lymphadenopathy: No mesenteric, retroperitoneal or periportal lymphadenopathy. Abdominal Wall and Mesentery: Unremarkable. Vasculature: The visualized abdominal aorta is normal in size and caliber. Abdominal and pelvic vess els demonstrate normal enhancement. Pelvic Organs: Unremarkable Musculoskeletal: No aggressive focal bony lesions, acute fractures or dislocation. IMPRESSION: 1. Interval decrease in size of intra splenic hematoma now measuring up to 1.5 cm, previously measuri ng up to 9 cm on December 29, 2023. 2. Interval decrease in hemorrhage in the left perirenal space. Radiation optimization: All CT scans at this facility use at least one of these dose optimization anthony hniques: automated exposure control mA and/or kV adjustment per patient size (includes targeted exam s where dose is matched to clinical indication) or iterative reconstruction.
[2024-06-09] MEDS: IOHEXOL 300 MG/ML 100ML BOTTLE IJ ONE (23:38)
--- NOTE | 2024-06-10 01:40 | DVHHPRES ---
History of Present Illness Resident Creating Document: INDAI MARIA RESIDENT History of Present Illness Patient is a 54-year-old male with past medical history of traumatic splenic hematoma in December 2023, type 2 diabetes diagnosed 4 years ago, hypertension diagnosed 3 years ago, who comes in at the recommendation of his PCP. According to the patient, he was attending his PCP appointment this morning when he shared his concerns about a left upper quadrant pain that has been ongoing for the past 2 weeks, upon which his PCP recommended him to go to the ER. Patient describes the pain as 6/10, constant and stabbing and localizes it to the right upper quadrant. Patient notes he frequently experiences similar pain off and on, however, current episode started 2 weeks ago. On review of systems patient is complaining of shortness of breath, dyspnea on urinary frequency. Serum lipase was noted to be 59, CT abdomen pelvis showed Interval decrease in size of intra splenic hematoma now measuring up to 1.5 cm, previously measuring up to 9 cm on December 29, 2023. Interval decrease in hemorrhage in the left perirenal space. Past Medical History traumatic splenic hematoma in December 2023, type 2 diabetes diagnosed 4 years ago, hypertension diagnosed 3 years ago Past Surgical History Denies Lives: with Family Past Social History Smoking: Quit 5 months ago, prior to that 10 pack year history Alcohol: Denies Drugs: Denies Review of Systems Constitutional: No: Fever, Chills, Sweats, Weakness, Malaise, Other Eyes: No: Pain, Vision change, Conjunctivae inflammation, Eyelid inflammation, Other, Redness ENT: No: Ear pain, Ear discharge, Nose pain, Nose discharge, Nose congestion, Mouth pain, Mouth swelling, Throat pain, Throat swelling, Other Respiratory: Shortness of breath; No: Cough, Dry, SOB with excertion, Wheezing, Hemoptysis, Pleuritic Pain, Sputum, Wheezing, Other Cardiovascular: No: Chest Pain, Palpitations, Orthopnea, Paroxysmal Noc. Dyspnea, Edema, Lt Headedness, Other Gastrointestinal: No: Nausea, Vomiting, Abdominal Pain, Diarrhea, Constipation, Melena, Hematochezia, Other Genitourinary: No Dysuria; Frequency; No Incontinence, No Hematuria, No Retention, No Other Musculoskeletal: No: other, neck pain, shoulder pain, arm pain, back pain, hand pain, leg pain, foot pain Skin: No: Rash, Lesions, Jaundice, Bruising, Other Neurological: No: Weakness, Numbness, Incoordination, Change in speech, Confusion, Seizures, Other Allergies: Coded Allergies: NO KNOWN ALLERGIES (Unverified , 06/23/17) Medications Current Medications Medications Dose Ordered Sig/Ochoa Route Start Time Stop Time Status Last Admin Dose Admin Atorvastatin Calcium 20 mg HS PO 06/10/24 22:00 UNV Exam Vital Signs Vital Signs Date Time Temp Pulse Resp B/P (MAP) Pulse Ox O2 Delivery O2 Flow Rate FiO2 06/09/24 21:54 86 06/09/24 20:05 98.7 18 140/70 (93) 98 General Appearance: Alert, Oriented X3, Cooperative, No acute distress HEENT: Atraumatic, PERRLA, EOMI, Mucous membr. moist/pink Respiratory: Clear to auscultation, Normal air movement Cardiovascular: Regular rate, Normal S1, Normal S2 Abdominal: Normal bowel sounds, Soft, Other (Right upper quadrant tenderness to palpation with radiation to the midepigastric area) Extremities: Other (1+ lower extremity edema) Skin: No rashes, No significant lesion Neuro: Normal gait, Normal speech, Strength at 5/5 X4 ext, Sensation intact Psych/Mental Status: Mental status NL, Mood NL Labs/Xrays Labs Test 06/10/24 00:14 06/09/24 20:33 06/09/24 20:12 Range/Units Troponin I High Sensitivity 5 </=54 ng/L White Blood Count 7.9 4.4-10.8 10^3/uL Red Blood Count 4.52 4.5-5.90 10^6/uL Hemoglobin 13.4 L 13.5-17.5 g/dL Hematocrit 39.9 L 41.0-53.0 % Mean Corpuscular Volume 88.4 80.0-100.0 fL Mean Corpuscular Hemoglobin 29.6 28.0-32.0 pg Mean Corpuscular Hemoglobin Concent 33.5 32.0-36.0 g/dL Red Cell Distribution Width 14.4 H 11.8-14.3 % Platelet Count 239 140-450 10^3/uL Mean Platelet Volume 7.6 6.9-10.8 fL Neutrophils (%) (Auto) 52.7 37.0-80.0 % Lymphocytes (%) (Auto) 37.0 10.0-50.0 % Monocytes (%) (Auto) 6.1 0.0-12.0 % Eosinophils (%) (Auto) 3.6 0.0-7.0 % Basophils (%) (Auto) 0.6 0.0-2.0 % Neutrophils # (Auto) 4.2 1.6-8.6 10 ^3/uL Lymphocytes # (Auto) 2.9 0.4-5.4 10 ^3/uL Monocytes # (Auto) 0.5 0-1.3 10 ^3/uL Eosinophils # (Auto) 0.3 0-0.8 10 ^3/uL Basophils # (Auto) 0 0-0.2 10 ^3/uL Nucleated Red Blood Cells 0.1 % Sodium Level 138 136-145 mmol/L Potassium Level 4.7 3.5-5.1 mmol/L Chloride Level 107 98-107 mmol/L Carbon Dioxide Level 23 20-31 mmol/L Anion Gap 8 5-15 Blood Urea Nitrogen 29 H 9-23 mg/dL Creatinine 2.41 H 0.700-1.30 mg/dL Glomerular Filtration Rate Calc 31 >90 mL/min BUN/Creatinine Ratio 12.0 10.0-20.0 Serum Glucose 189 H 74-106 mg/dL Calcium Level 9.7 8.7-10.4 mg/dL Magnesium Level 1.9 1.6-2.6 mg/dL Total Bilirubin 0.2 0.2-1.0 mg/dL Aspartate Amino Transferase (AST) 13 13-40 U/L Alanine Aminotransferase (ALT) 10 7-40 U/L Alkaline Phosphatase 74 46-116 U/L Total Protein 7.1 5.7-8.2 g/dL Albumin 4.0 3.2-4.8 g/dL Urine Color Light-yellow Yellow Urine Clarity Clear Clear Urine pH 6.0 5.0-9.0 Urine Specific [place] 1.018 1.001-1.035 Urine Protein 3+ H Negative Urine Ketones Negative Negative Urine Blood Trace H Negative /uL Urine Nitrite Negative Negative Urine Bilirubin Negative Negative Urine Urobilinogen Normal Negative mg/dL Urine Leukocyte Esterase Negative Negative /uL Urine RBC 1 0 - 3 /hpf Urine Microscopic WBC < 1 0-3 /HPF Urine Squamous Epithelial Cells Few <5 /hpf Urine Bacteria None seen None Seen /hpf Urine Glucose 4+ H Normal mg/dL Assessment/Plan Assessment/Plan Acute intractable abdominal pain MINA likely hemodynamically mediated/VMN on possible CKD 3? - serum lipase 59 - CT abdomen pelvis: Interval decrease in size of intra splenic hematoma now measuring up to 1.5 cm, previously measuring up to 9 cm on December 29, 2023. Interval decrease in hemorrhage in the left perirenal space.The pancreas is normal in appearance without focal lesions or abnormal enhancement. - CXR: No acute intracranial abnormality - renal ultrasound: Unremarkable examination - IV NS 500 cc - ordered urine sodium, urine creatinine, urine protein - ordered creatinine kinase, uric acid Type 2 diabetes, uncontrolled Hb A1c 7% Hypertension Hypertriglyceridemia, dyslipidemia - atorvastatin 20 mg - mild sliding scale insulin Goals of care: Full code, discussed for >16 minutes on 06/10/24 Plan discussed with patient Plan discussed with Dr. Beach Plan discussed with: Patient, Other (RN) My Orders Orders - [place] RESIDENT Procedure Category Date Status Time Admit ADMIT 06/10/24 Transmitted 00:25 Code Status CODE 06/10/24 Transmitted 00:25 Vital Signs [facility] 06/10/24 In Process 00:25 Review Orders With [facility] 06/10/24 In Process Adm.Md 00:25 Notify Md Of Changes [facility] 06/10/24 In Process From Base 00:25 Advance Directive [facility] 06/10/24 In Process 00:25 Patient Condition ORDERS 06/10/24 Transmitted 00:25 Allergies [facility] 06/10/24 In Process 00:25 Notify Md Of Changes [facility] 06/10/24 In Process From Base 00:25 Electrocardigram EKG 06/10/24 Logged 00:25 Lipase LAB 06/10/24 In Process 00:25 Urine Sodium LAB 06/10/24 Logged 00:25 Kidney US 06/10/24 Logged 00:25 Hemoglobin A1c LAB 06/10/24 In Process 00:25 Lipid Panel LAB 06/10/24 In Process 00:25 Drug Screen LAB 06/10/24 Logged 00:25 Hiv 1&2 Antibody LAB 06/10/24 In Process 00:25 Creatine Kinase LAB 06/10/24 In Process 00:25 Uric Acid LAB 06/10/24 In Process 00:25 Urine LAB 06/10/24 Logged Protein/Creatinine 00:25 Sodium Chloride 0.9% [facility] 06/10/24 Logged 01:45 Atorvastatin (Lipitor) [facility] 06/10/24 Logged 22:00 [place] MARIA RESIDENT Jun 10, 2024 01:40
--- NOTE | 2024-06-10 02:01 | DVH ---
INDICATION: MINA on CKD TECHNIQUE: Multiple real-time sonographic images of the kidneys and bladder were obtained. COMPARISON: US KIDNEY on DOS: 12/29/23 FINDINGS: The right kidney measures 11.2 cm in length. The right renal echogenicity, contour and cortical thick ness are within normal limits. No hydronephrosis or large masses/calculi are seen. The left kidney measures 12.2 cm in length. The left renal echogenicity, contour, and cortical thickn ess are within normal limits. No hydronephrosis or large masses/calculi are seen. No large intraluminal masses are seen in the bladder. Bladder volume measures 67 mL. IMPRESSION: 1. Unremarkable examination.
[2024-06-10 02:04] LABS: Creatine Kinase IFCC 117 U/L (46-171); HDL Cholesterol 43 mg/dL (40-59)
[2024-06-10] MEDS: SODIUM CHLORIDE 0.9% 500 ML IV ONE ×2 (02:17→10:56)
[2024-06-10 02:29] LABS: Cholesterol 256 mg/dL (< 200); Triglycerides 532 mg/dL (< 150)
[2024-06-10 03:33] LABS: Uric Acid 7.4 mg/dL (3.7-9.2)
[2024-06-10 03:39] LABS: Lipase 59 U/L (12-53)
[2024-06-10 05:08] VITALS: PULSE 78; RESP 18; O2SAT 98
[2024-06-10] MEDS ORDERED: DEXTROSE (50%) 50ML SYRG IV PRN (05:15)
[2024-06-10 05:45] VITALS: BP 155/76; PULSE 71; RESP 18; TEMP 97.5; O2SAT 98
[2024-06-10 06:18] LABS: Basophils # (auto) 0 10 ^3/uL (0-0.2); Basophils % (auto) 0.5 % (0.0-2.0); Eosinophils # (auto) 0.3 10 ^3/uL (0-0.8); Eosinophils % (auto) 3.2 % (0.0-7.0); Hematocrit 40.8 % (41.0-53.0); Hemoglobin 13.6 g/dL (13.5-17.5); Lymphocytes # (auto) 2.8 10 ^3/uL (0.4-5.4); Lymphocytes % (auto) 32.8 % (10.0-50.0); Mean Corpuscular Hemoglobin 29.5 pg (28.0-32.0); Mean Corpuscular Hgb Conc. 33.2 g/dL (32.0-36.0); Mean Corpuscular Volume 88.9 fL (80.0-100.0); Monocytes # (auto) 0.6 10 ^3/uL (0-1.3); Monocytes % (auto) 6.6 % (0.0-12.0); Neutrophils # (auto) 4.8 10 ^3/uL (1.6-8.6); Neutrophils % (auto) 56.9 % (37.0-80.0); Nucleated Red Blood Cells % 0.1 %; Platelet Count (auto) 242 10^3/uL (140-450); Red Blood Cells 4.59 10^6/uL (4.5-5.90); Red Cell Distribution Width 14.6 % (11.8-14.3); White Blood Cell 8.5 10^3/uL (4.4-10.8)
[2024-06-10 06:28] LABS: Chloride 106 mmol/L (98-107); Potassium 4.7 mmol/L (3.5-5.1); Sodium 138 mmol/L (136-145)
[2024-06-10 06:29] LABS: Anion Gap 8 (5-15); Carbon Dioxide 24 mmol/L (20-31)
[2024-06-10 06:30] LABS: Calcium 9.5 mg/dL (8.7-10.4)
[2024-06-10 06:35] LABS: BUN/Creatinine Ratio 14.6 (10.0-20.0); Blood Urea Nitrogen 33 mg/dL (9-23); Glucose 159 mg/dL (74-106)
[2024-06-10] MEDS: ACCU-CHEK COMFORT CURVE STRIP VI SCH (06:45)
[2024-06-10] MEDS: InsuLIN REG 1unit/0.01ml Soln (100units/ml) SC SCH (06:47)
--- NOTE | 2024-06-10 12:44 | ECG ---
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
--- NOTE | 2024-06-10 12:44 | ECG ---
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
--- NOTE | 2024-06-10 18:46 | DVHDSRES ---
Discharge Summary Date of Admission Resident Creating Document: LEANDRO MENESES RESIDENT Jun 10, 2024 at 00:25 Date of Discharge: Jun 10, 2024 Admitting Diagnosis Acute intractable abdominal pain MINA likely hemodynamically mediated/VMN on possible CKD 3? Type 2 diabetes, uncontrolled Hb A1c 7% Hypertension Hypertriglyceridemia, dyslipidemia Wounds: none Labs/Diagnostic Data: Laboratory Results Test 06/10/24 11:09 06/10/24 05:51 06/10/24 00:14 06/09/24 20:33 POC Glucose 202 mg/dl (70-106) White Blood Count 8.5 10^3/uL (4.4-10.8) Red Blood Count 4.59 10^6/uL (4.5-5.90) Hemoglobin 13.6 g/dL (13.5-17.5) Hematocrit 40.8 % (41.0-53.0) Mean Corpuscular Volume 88.9 fL (80.0-100.0) Mean Corpuscular Hemoglobin 29.5 pg (28.0-32.0) Mean Corpuscular Hemoglobin Concent 33.2 g/dL (32.0-36.0) Red Cell Distribution Width 14.6 % (11.8-14.3) Platelet Count 242 10^3/uL (140-450) Mean Platelet Volume 7.3 fL (6.9-10.8) Neutrophils (%) (Auto) 56.9 % (37.0-80.0) Lymphocytes (%) (Auto) 32.8 % (10.0-50.0) Monocytes (%) (Auto) 6.6 % (0.0-12.0) Eosinophils (%) (Auto) 3.2 % (0.0-7.0) Basophils (%) (Auto) 0.5 % (0.0-2.0) Neutrophils # (Auto) 4.8 10 ^3/uL (1.6-8.6) Lymphocytes # (Auto) 2.8 10 ^3/uL (0.4-5.4) Monocytes # (Auto) 0.6 10 ^3/uL (0-1.3) Eosinophils # (Auto) 0.3 10 ^3/uL (0-0.8) Basophils # (Auto) 0 10 ^3/uL (0-0.2) Nucleated Red Blood Cells 0.1 % Sodium Level 138 mmol/L (136-145) Potassium Level 4.7 mmol/L (3.5-5.1) Chloride Level 106 mmol/L (98-107) Carbon Dioxide Level 24 mmol/L (20-31) Anion Gap 8 (5-15) Blood Urea Nitrogen 33 mg/dL (9-23) Creatinine 2.26 mg/dL (0.700-1.30) Glomerular Filtration Rate Calc 34 mL/min (>90) BUN/Creatinine Ratio 14.6 (10.0-20.0) Serum Glucose 159 mg/dL (74-106) Calcium Level 9.5 mg/dL (8.7-10.4) Troponin I High Sensitivity 6 ng/L (</=54) B-Type Natriuretic Peptide 39.39 pg/mL (0-100) Uric Acid 7.4 mg/dL (3.7-9.2) Creatine Kinase 117 U/L (46-171) Triglycerides Level 532 mg/dL (< 150) Cholesterol Level 256 mg/dL (< 200) LDL Cholesterol mg/dL (< 100) HDL Cholesterol 43 mg/dL (40-59) Lipase 59 U/L (12-53) Hemoglobin A1c 7.2 % A1C (<5.7) Magnesium Level 1.9 mg/dL (1.6-2.6) Total Bilirubin 0.2 mg/dL (0.2-1.0) Aspartate Amino Transferase (AST) 13 U/L (13-40) Alanine Aminotransferase (ALT) 10 U/L (7-40) Alkaline Phosphatase 74 U/L (46-116) Total Protein 7.1 g/dL (5.7-8.2) Albumin 4.0 g/dL (3.2-4.8) HIV (1&2) Antibody Negative (Negative) Test 06/09/24 20:12 Urine Color Light-yellow (Yellow) Urine Clarity Clear (Clear) Urine pH 6.0 (5.0-9.0) Urine Specific [place] 1.018 (1.001-1.035) Urine Protein 3+ (Negative) Urine Ketones Negative (Negative) Urine Blood Trace /uL (Negative) Urine Nitrite Negative (Negative) Urine Bilirubin Negative (Negative) Urine Urobilinogen Normal mg/dL (Negative) Urine Leukocyte Esterase Negative /uL (Negative) Urine RBC 1 /hpf (0 - 3) Urine Microscopic WBC < 1 /HPF (0-3) Urine Squamous Epithelial Cells Few /hpf (<5) Urine Bacteria None seen /hpf (None Seen) Urine Glucose 4+ mg/dL (Normal) Other Laboratory Tests 06/10/24 05:51 Brief Hx & Hospital Course: History of Present Illness Patient is a 54-year-old male with past medical history of traumatic splenic hematoma in December 2023, type 2 diabetes diagnosed 4 years ago, hypertension diagnosed 3 years ago, who comes in at the recommendation of his PCP. According to the patient, he was attending his PCP appointment this morning when he shared his concerns about a left upper quadrant pain that has been ongoing for the past 2 weeks, upon which his PCP recommended him to go to the ER. Patient describes the pain as 6/10, constant and stabbing and localizes it to the right upper quadrant. Patient notes he frequently experiences similar pain off and on, however, current episode started 2 weeks ago. On review of systems patient is complaining of shortness of breath, dyspnea on urinary frequency. Serum lipase was noted to be 59, CT abdomen pelvis showed Interval decrease in size of intra splenic hematoma now measuring up to 1.5 cm, previously measuring up to 9 cm on December 29, 2023. Interval decrease in hemorrhage in the left perirenal space. Hospital course Patient was admitted to the hospital with a chief complaint of left upper quadrant pain underwent a CT abdomen pelvis with IV contrast which showed resolving splenic hematoma. Patient reported no change in the bowel or bladder habits. Patient tolerated diet well in the hospital and reported that the pain has improved. Patient was given IV fluid hydration. Patient was discharged in stable condition to home advised to continue on the home medication. Discharge plan Continue on home meds Follow up with the PCP in 1 week Consults/Reason for consult none Operations or Procedures CT abdomen pelvis with IV contrast Findings: Lung Bases: No acute or significant lung base finding. Normal heart size. No pleural or pericardial effusion. Liver: The liver is normal in size. No focal lesions. Normal hepatic vascular enhancement. Gallbladder and Biliary Tree: Unremarkable Spleen: Interval decrease in size of intra splenic hematoma which now measures up to 1.5 cm, previously measuring up to 9 cm. Interval decrease in blood products surrounding the spleen which now measures up to 1.2 cm, previously measuring up to 13.5 cm. Pancreas: The pancreas is normal in appearance without focal lesions or abnormal enhancement. Adrenal Glands: Unremarkable Kidneys: No hydronephrosis. Bladder: Unremarkable Bowel: The stomach is grossly normal in appearance. Small bowel and colon are normal in caliber and distribution. Normal appendix is visualized in the right lower quadrant without findings of appendicitis. Ascites: Absent Lymphadenopathy: No mesenteric, retroperitoneal or periportal lymphadenopathy. Abdominal Wall and Mesentery: Unremarkable. Vasculature: The visualized abdominal aorta is normal in size and caliber. Abdominal and pelvic vessels demonstrate normal enhancement. Pelvic Organs: Unremarkable Musculoskeletal: No aggressive focal bony lesions, acute fractures or dislocation. IMPRESSION: 1. Interval decrease in size of intra splenic hematoma now measuring up to 1.5 cm, previously measuring up to 9 cm on December 29, 2023. 2. Interval decrease in hemorrhage in the left perirenal space. Renal ultrasound FINDINGS: The right kidney measures 11.2 cm in length. The right renal echogenicity, contour and cortical thickness are within normal limits. No hydronephrosis or large masses/calculi are seen. The left kidney measures 12.2 cm in length. The left renal echogenicity, contour, and cortical thickness are within normal limits. No hydronephrosis or large masses/calculi are seen. No large intraluminal masses are seen in the bladder. Bladder volume measures 67 mL. IMPRESSION: Unremarkable examination. Condition at Discharge: Good Final Diagnosis/Problems List Acute intractable abdominal pain spleninc hematoma resolving MINA likely hemodynamically mediated/VMN on possible CKD 3? Type 2 diabetes, uncontrolled Hb A1c 7% Hypertension Hypertriglyceridemia, dyslipidemia Discharge Disposition: Home Discharge Instruct/Medications Diet: Consistent carbohydrate Activity: No Restrictions, As Tolerated Follow Up/Referral: Follow up with the PCP in one week Medications: continue home medications Discharge Statement: "Patient was advised to return to the ER or call 911 if any headaches, dizziness, shortness of breath, chest pain, abdominal pain, bleeding, fevers, or worsening of medical condition. Patient was counseled about treatment plan, medications, possible side effects, patientverbalized understanding. All questions were answered to the best of my ability. This discharge took greater then 30 minutes in planning, reviewing documentation, counseling the patient, and discussing with other team members." ASSESSMENT ASSESSMENT Assessment Acute intractable abdominal pain spleninc hematoma resolving MINA likely hemodynamically mediated/VMN on possible CKD 3? Type 2 diabetes, uncontrolled Hb A1c 7% Hypertension Hypertriglyceridemia, dyslipidemia Date of Service: Jun 10, 2024 Billing Provider: MERCEDEZ PEREZ MD Common Visit Codes: 11132-MGG/OBS DISCH DAY >30min LEANDRO MENESES RESIDENT Jun 10, 2024 18:46 MERCEDEZ PEREZ MD Jun 14, 2024 08:58
[2024-06-10] MEDS ORDERED: ATORVASTATIN 20 MG TAB PO SCH (22:00)
== END 2024-06-10 13:14 | disposition home or self-care (01) | DRG 663 ==
LOC: ER 19:54 → OVERFLOW 06-10 00:25
PROVIDERS: ADMIT Student in an Organized Health Care Education/Training Program; ATTEND Student in an Organized Health Care Education/Training Program
DX: D73.5 Infarction of spleen (principal); N17.0 Acute kidney failure with tubular necrosis; E11.22 Type 2 diabetes mellitus with diabetic chronic kidney disease; N28.9 Disorder of kidney and ureter, unspecified; N18.30 Chronic kidney disease, stage 3 unspecified; I12.9 Hypertensive chronic kidney disease with stage 1 through stage 4 chronic kidney disease, or unspecified chronic kidney disease; E78.1 Pure hyperglyceridemia; Z87.891 Personal history of nicotine dependence; Z79.899 Other long term (current) drug therapy; Z79.84 Long term (current) use of oral hypoglycemic drugs; E78.5 Hyperlipidemia, unspecified
CPT/HCPCS: 36415; 71045; 74177; 76775; 80048; 80053; 80061; 81001; 82550; 82962; 83036; 83690; 83735; 83880; 84484; 84550; 85025; 86703; 93005; G0378; J1815

== ENCOUNTER 2025-05-03 12:49 | Inpatient (IN) | payer OTHER ==
[~2025-05-03] VITALS: Ht 170.2 cm; Wt 101.0 kg
[2025-05-03] VITALS (24 sets, daily range): BP systolic 39–168; BP diastolic 16–95; PULSE 64–139; RESP 13–30; TEMP 97.1–98.6; O2SAT 95–99
[~2025-05-03 12:49] MED LIST changes: -AMIO200T33 PO
--- NOTE | 2025-05-03 13:08 | ECG ---
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
--- NOTE | 2025-05-03 13:24 | ED.PDOC ---
History of Present Illness HPI Comments 54-year-old male presents to the ER with prior medical history of splenic hematoma, hypertension, diabetes, high lipids and a chief complaint of shortness a breath. Patient reports on recently returning from [place] last night and states on having had shortness a breath for the past three days associated with no taste. Denies any other symptoms at this time. Denies chills, fever, N/V/D, CP. No other associated symptoms, modifiers, recent injuries or sick contacts present at this time. Chief Complaint: Shortness of Breath Time Seen by MD: 12:50 Primary Care Provider: UNKNOWN Reviewed Notes: Nurses Notes, Medications, Allergies Allergies: Coded Allergies: NO KNOWN ALLERGIES (Unverified , 06/23/17) Home Meds Active Scripts Furosemide (Lasix) 40 Mg Tab, 40 MG PO DAILY, #30 TAB Prov:GONZALEZ CRUZ MD 01/05/24 Pantoprazole Sodium Sesquihydr (Pantoprazole Sodium) 40 Mg Tab, 40 MG PO DAILYP PRN for 30 Days, #30 TAB Prov:ZOE BASHIR MD 01/04/24 Reported Medications Simvastatin (Simvastatin) 20 Mg Tab, 1 TAB PO DAILY for 90 Days, #90 12/27/23 Glipizide (Glipizide) 10 Mg Tab, 1 TAB PO BID 12/27/23 Sildenafil Citrate (Sildenafil Citrate) 100 Mg Tab, 1 TAB PO DAILYPRN PRN for ERECTILE DYSFUNCTION 12/27/23 Metformin Hydrochloride (Metformin Hcl) 1,000 Mg Tab, 1 TAB PO BID 12/27/23 Information Source: Patient Mode of Arrival: Ambulatory Severity: Moderate Timing: Days Duration: Since onset, Days Prehospital treatment: None Past Medical History PAST MEDICAL HISTORY: DM, High Lipids, HTN Past Medical History (Other): Splenic hematoma Surgical History: Denies all surgeries Family History Family History: Reviewed,noncontributory to illness, Unknown Social History Smoker: Quit Less Than 1 Year, Cigarettes Alcohol: Denies ETOH Use Drugs: Denies Drug Use Lives In: Home Constitutional: denies: chills, diaphoresis, fatigue, fever, malaise, sweats, weakness, others EENTM: denies: blurred vision, double vision, ear bleeding, ear discharge, ear drainage, ear pain, ear ringing, eye pain, eye redness, hearing loss, mouth pain, mouth swelling, nasal discharge, nose bleeding, nose congestion, nose pain, photophobia, tearing, throat pain, throat swelling, voice changes, others Respiratory: reports: shortness of breath; denies: cough, hemoptysis, orthopnea, SOB at rest, SOB with excertion, stridor, wheezing, others Cardiovascular: denies: chest pain, dizzy spells, diaphoresis, Dyspnea on exertion, edema, irregular heart beat, left arm pain, lightheadedness, palpitations, PND, syncope, others Gastrointestinal: denies: abdomen distended, abdominal pain, blood streaked bowels, constipated, diarrhea, dysphagia, difficulty swallowing, hematemesis, melena, nausea, poor appetite, poor fluid intake, rectal bleeding, rectal pain, vomiting, others Genitourinary: denies: burning, dysuria, flank pain, frequency, hematuria, incontinence, penile discharge, penile sore, pain, testicle pain, testicle swelling, urgency, others Neurological: denies: dizziness, fainting, headache, left sided numbness, left sided weakness, numbness, paresthesia, pre-existing deficit, right sided numbness, right sided weakness, seizure, speech problems, tingling, tremors, weakness, others Integumetry: denies: bruises, change in color, change in hair/nails, dryness, laceration, lesions, lumps, rash, wounds, others Allergic/Immunocompromised: denies: Difficulty Healing, Frequent Infections, Hives, Itching, others Hematologic/Lymphatic: denies: anemia, blood clots, easy bleeding, easy bruising, swollen glands, others Endocrine: denies: excessive hunger, excessive sweating, excessive thirst, excessive urination, flushing, intolerance to cold, intolerance to heat, unexplained weight gain, unexplained weight loss, others Psychiatric: denies: anxiety, bipolar disorder, depression, hopeless, panic disorder, schizophrenia, sleepless, suicidal, others All Other Systems: Reviewed and Negative Physical Exam General Appearance: Moderate Distress, Normal HEENT: Normal ENT Inspection, Pharynx Normal, TMs Normal Neck: Full Range of Motion, Non-Tender, Normal, Normal Inspection Respiratory: Chest Non-Tender, Lungs Clear, No Accessory Muscle Use, No Respiratory Distress, Normal Breath Sounds Cardiovascular: Irregular, No Edema, No JVD, No Murmur, No Gallop, Normal Peripheral Pulses Breast Exam: Deferred Gastrointestinal: No Organomegaly, Non Tender, No Pulsatile Mass, Normal Bowel Sounds, Soft Genitalia: Deferred Pelvic: Deferred Rectal: Deferred Extremities: No calf tenderness, Normal capillary refill, Normal inspection, Normal range of motion, Non-tender, No pedal edema Musculoskeletal : Apperance: Normal Neurologic: Alert, nuclear medicine supervisor II-XII nml as Tested, No Motor Deficits, Normal Affect, Normal Mood, No Sensory Deficits Cerebellar Function: NOT DONE Reflexes: NOT DONE Skin: Dry, Normal Color, Warm Peripheral Pulses: 3+ Radial (R), 3+ Radial (L) Lymphatic: No Adenopathy Was a procedure done? Was a procedure done?: No EKG EKG : Pulse Rate (adult): 140 [place]: Normal Cardiac Rhythm: Afib Block: None Hypertrophy: None ST: Normal Differential Dx Considerations may include: Atrial fibrillation X-Ray, Labs, Meds, VS Vital Signs Date Time Temp Pulse Resp B/P (MAP) Pulse Ox O2 Delivery O2 Flow Rate FiO2 05/03/25 13:24 140 05/03/25 12:57 140 05/03/25 12:50 97.3 88 20 107/78 96 97.3 Lab Test 05/03/25 13:37 Range/Units White Blood Count 8.8 4.4-10.8 10^3/uL Red Blood Count 3.61 L 4.5-5.90 10^6/uL Hemoglobin 10.5 L 13.5-17.5 g/dL Hematocrit 32.2 L 41.0-53.0 % Mean Corpuscular Volume 89.1 80.0-100.0 fL Mean Corpuscular Hemoglobin 29.2 28.0-32.0 pg Mean Corpuscular Hemoglobin Concent 32.8 32.0-36.0 g/dL Red Cell Distribution Width 14.5 H 11.8-14.3 % Platelet Count 220 140-450 10^3/uL Mean Platelet Volume 8.6 6.9-10.8 fL Neutrophils (%) (Auto) 76.0 37.0-80.0 % Lymphocytes (%) (Auto) 14.3 10.0-50.0 % Monocytes (%) (Auto) 7.9 0.0-12.0 % Eosinophils (%) (Auto) 1.5 0.0-7.0 % Basophils (%) (Auto) 0.3 0.0-2.0 % Neutrophils # (Auto) 6.7 1.6-8.6 10 ^3/uL Lymphocytes # (Auto) 1.3 0.4-5.4 10 ^3/uL Monocytes # (Auto) 0.7 0-1.3 10 ^3/uL Eosinophils # (Auto) 0.1 0-0.8 10 ^3/uL Basophils # (Auto) 0 0-0.2 10 ^3/uL Nucleated Red Blood Cells 0.0 % Sodium Level 134 L 136-145 mmol/L Potassium Level 4.5 3.5-5.1 mmol/L Chloride Level 102 98-107 mmol/L Carbon Dioxide Level 18 L 20-31 mmol/L Anion Gap 14 5-15 Blood Urea Nitrogen 55 H 9-23 mg/dL Creatinine 3.89 H 0.700-1.30 mg/dL Glomerular Filtration Rate Calc 18 >90 mL/min BUN/Creatinine Ratio 14.1 10.0-20.0 Serum Glucose 272 H 74-106 mg/dL Calcium Level 8.7 8.7-10.4 mg/dL Troponin I High Sensitivity 31776 *H </=54 ng/L Current Medications Medications (Trade) Dose Ordered Sig/Ochoa Route Start Time Stop Time Status Last Admin Amiodarone HCl 100 ml @ 600 mls/hr ONCE ONCE IV 05/03/25 13:30 05/03/25 13:39 DC 05/03/25 13:43 Amiodarone HCl 250 ml @ 33.33 mls/ hr Q7H31M ONCE IV 05/03/25 13:30 05/03/25 21:00 05/03/25 13:45 Patient alert. Came in because of shortness a breath. Blood sugar elevated. Vitals stable. EKG reviewed does show atrial fibrillation. Possibly new onset. Started amiodarone. Denies any chest pain. Cardiology consultation. Continue monitoring. Time of 1ST Reevaluation: 13:22 Reevaluation 1ST: Unchanged Patient Education/Counseling: Diagnosis, Treatment, Prognosis Family Education/Counseling: No Family Present SEPSIS Sepsis Screen Date sepsis recognized/suspect: May 03, 2025 Time Sepsis recognized/suspect: 1250 Recent Procedure: No On Antibiotic Therapy: No Respiratory Rate >20: No Heart Rate >90: Yes Temp<36 C (96.8 F) or >38.3 C: No SBP <90 or MAP <65 mmHG: No New Acute Mental Status Change: No Is the patient on CPAP, BIPAP,: No Physician Orders Chest Portable (05/03/25 13:17) Urinalysis (05/03/25 13:17) Amiodarone 450mg/250ml Ae (Cordarone) (05/03/25 13:30) Troponin-I Hs (05/03/25 14:25) Troponin-I Hs (05/03/25 15:25) Troponin-I Hs (05/03/25 17:25) Electrocardigram (05/03/25 14:26) Electrocardigram (05/03/25 15:26) Electrocardigram (05/03/25 17:26) Vital Signs Date Time Temp Pulse Resp B/P (MAP) Pulse Ox O2 Delivery O2 Flow Rate FiO2 05/03/25 13:24 140 05/03/25 12:57 140 05/03/25 12:50 97.3 88 20 107/78 96 97.3 Laboratory Tests Test 05/03/25 13:37 White Blood Count 8.8 10^3/uL (4.4-10.8) Medications Medications Dose Ordered Sig/Ochoa Route Start Time Stop Time Status Last Admin Dose Admin Amiodarone HCl 100 ml @ 600 mls/hr ONCE ONCE IV 05/03/25 13:30 05/03/25 13:39 DC 05/03/25 13:43 Amiodarone HCl 250 ml @ 33.33 mls/ hr Q7H31M ONCE IV 05/03/25 13:30 05/03/25 21:00 05/03/25 13:45 Departure 1 Departure Time of Disposition: 14:34 Impression: Primary Impression: NSTEMI (non-ST elevated myocardial infarction) Additional Impressions: Diabetes mellitus with hyperglycemia Qualified Codes: E13.65 - Other specified diabetes mellitus with hyperglycemia; 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 Electronically submitted by Yoel Schwab ([email or web address]). JAQUELINE REYNAGA MD May 03, 2025 13:24
[2025-05-03] MEDS: AMIODARONE BOLUS KIT 100 ML IV ONE (13:43)
--- NOTE | 2025-05-03 13:59 | DVH ---
CHEST RADIOGRAPH INDICATION: sob TECHNIQUE: Single frontal view of the chest was obtained COMPARISON: XY CHEST PORTABLE on DOS: 06/09/24, XY CHEST XRAY 1 VIEW on DOS: 01/05/24, XY CHEST PORTABLE on DOS: 12/30/23 FINDINGS: Lines and Tubes: None Lungs: Bilateral airspace opacities suggestive of pulmonary edema pattern. Infection can not be excluded. Findings are new compared to the prior study of 06/09/2024. Pleura: No effusion. No pneumothorax. Cardiomediastinal contours: Moderate cardiomegaly. Pulmonary vascular redistribution. Bones: Unremarkable IMPRESSION: 1. Moderate cardiomegaly with pulmonary edema pattern. 2. Infection can not be excluded.
[2025-05-03 14:03] LABS: Hematocrit 32.2 % (41.0-53.0); Hemoglobin 10.5 g/dL (13.5-17.5); Mean Corpuscular Hemoglobin 29.2 pg (28.0-32.0); Mean Corpuscular Volume 89.1 fL (80.0-100.0); Nucleated Red Blood Cells % 0.0 %
[2025-05-03 14:06] LABS: Chloride 102 mmol/L (98-107); Potassium 4.5 mmol/L (3.5-5.1)
[2025-05-03 14:07] LABS: Anion Gap 14 (5-15); Calcium 8.7 mg/dL (8.7-10.4); Carbon Dioxide 18 mmol/L (20-31); Sodium 134 mmol/L (136-145)
[2025-05-03 14:12] LABS: BUN/Creatinine Ratio 14.1 (10.0-20.0)
[2025-05-03 14:16] LABS: Blood Urea Nitrogen 55 mg/dL (9-23); Glucose 272 mg/dL (74-106)
[2025-05-03] MEDS: HEPARIN SODIUM (PORCINE) 5000 UNITS/ML 1ML VIAL IV ONE (14:35)
[2025-05-03] MEDS: IODIXANOL 320MG/ML 100ML BTL IV ONE ×2 (14:43→15:47)
[2025-05-03 15:06] LABS: Urine Protein, UAD 3+ (Negative)
[2025-05-03 15:25] LABS: INR 1.06 (0.9-1.15); Partial Thromboplastin Time 64.1 SEC (24.5-34.5); Prothrombin Time 11.2 sec (9.3-11.8)
[2025-05-03] MEDS: ANGIOMAX 250 MG VIAL IV ONE ×3 (15:46→20:52)
[2025-05-03] MEDS: HEPARIN SODIUM (PORCINE) 5000 UNITS/ML 1ML VIAL ONE (15:46)
[2025-05-03] MEDS: VERAPAMIL 2.5MG/ML INJ 2ML VIAL IV ONE (15:46)
[2025-05-03] MEDS: SODIUM CHL 0.9% 50 ML ONE ×2 (15:47→18:02)
[2025-05-03] MEDS: MIDAZOLAM HCL 2MG/2ML 2ml VIAL (1mg/ml) ONE (15:47)
[2025-05-03] MEDS: LIDOCAINE 2%HCL (LOCAL ANESTH.) INJ 20ML MDV ONE (15:47)
[2025-05-03] MEDS: fentaNYL CITRATE 100 MCG/2 ML VL ONE (15:47)
--- NOTE | 2025-05-03 15:58 | ECG ---
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
--- NOTE | 2025-05-03 16:02 | DVH ---
EXAM: CT CT AB PEL WO CON-NO ORAL OR IV History: h/o splenic hematoma Comparison Study: CT CT AB PEL WO CON-NO ORAL OR IV on DOS: 12/29/23, CT CT AB PEL WO CON-NO ORAL OR IV on DOS: 12/26/23, CT CT AB PEL WO CON-NO ORAL OR IV on DOS: 12/14/23 TECHNIQUE: Multidetector CT of the abdomen pelvis without IV contrast. Axial, coronal and sagittal multiplanar reformats were obtained from the axial data set by the technologist. Radiation Dose Information: CT Dose: CTDI volume is 22.36 mGy. Dose-length product is 1376.55 mGy*cm FINDINGS: Small right with Trace left-sided pleural effusions and associated atelectasis. Bibasilar inter lobar septal thickening with mild ground-glass opacity. Moderate cardiomegaly. Heavy atherosclerotic calcification of the coronary arteries. Mild hepatosplenomegaly. Otherwise, liver, spleen, pancreas and adrenal glands are unremarkable. There is significant pericholecystic edema with no CT evidence of cholelithiasis. Moderate bilateral perinephric fat stranding. No hydro nephrosis or renal calculi bilaterally. Bilateral ureters unremarkable. Limited evaluation of the Urinary bladder due to inadequate distention. Prostate measures 4.4 x 5.3 x 4.4 cm. Gastric wall thickening. Mild wall Thickening of proximal Small bowel loops. The remainder of the small bowel loops unremarkable. Appendix is normal in size without evidence of wall thickening. Fat stranding adjacent to The appendix which is most likely from the perirenal fat stranding. Small amount of fecal material within the colon. No evidence of intraperitoneal free air or free fluid. No evidence of aortic aneurysm. Mild atherosclerotic calcification of the aorta and bilateral iliacs. Slightly prominent retroperitoneal lymph nodes measuring up to 0.8 cm. Small fat containing umbilical hernia. Tiny fat containing bilateral inguinal hernias. Mild body wall edema. No evidence of acute osseous abnormalities. IMPRESSION: Wall thickening of the stomach and proximal small bowel loops. Correlate for gastroenteritis. Moderate bilateral perirenal fat stranding. Correlate for possible infectious process. Significant pericholecystic edema no CT evidence of cholelithiasis. Ultrasound is recommended for further evaluation. Prominent retroperitoneal lymph nodes which may be reactive with neoplasm not excluded. Small right with Trace left-sided pleural effusions and associated atelectasis . findings suggestive of mild pulmonary edema.
--- NOTE | 2025-05-03 17:09 | DVHINCON2 ---
Date Seen: May 03, [address] Herman Reason for Consultation cardiology consult History of Present Illness Patient is a 54-year-old male who presented to the ER with a chief complaint of shortness of breath and chest pain. Patient flew in from [facility] 3 days ago, reported that he was apparently well back there, started to have shortness of breath while at the airport in [facility] and since the last 3 days has had worsening shortness of breath associated with chest pain which is substernal, brought on by exertion and slightly relieved on resting, shortness of breath also worsened on walking around. Patient came to the ER today for further evaluation. On arrival chest x-ray showed bilateral congestion, initial 12 lead EKG showed atrial fibrillation in RVR, old inferior infarct, T-wave inversions in the V[place] [address]--> [address]44. Past medical history: Insulin-dependent Type 2 diabetes mellitus, hypertension, ? Congestive heart failure, CKD Surgical history: Denies Social history: Patient denies current smoking, alcohol, drug use Home medications: Insulin glargine, insulin lispro, Farxiga, Lasix, statin Past Medical History As per HPI Past Surgical History As per HPI Family History: Diabetes mellitus G8 MOTHER Hypertension G8 MOTHER G8 FATHER Thyroid disease G8 MOTHER Family History None Social History As per HPI Allergies: Coded Allergies: NO KNOWN ALLERGIES (Unverified , 06/23/17) Home Meds Active Scripts Furosemide (Lasix) 40 Mg Tab, 40 MG PO DAILY, #30 TAB Prov:GONZALEZ CRUZ MD 01/05/24 Pantoprazole Sodium Sesquihydr (Pantoprazole Sodium) 40 Mg Tab, 40 MG PO DAILYP PRN for 30 Days, #30 TAB Prov:ZOE BASHIR MD 01/04/24 Reported Medications Simvastatin (Simvastatin) 20 Mg Tab, 1 TAB PO DAILY for 90 Days, #90 12/27/23 Glipizide (Glipizide) 10 Mg Tab, 1 TAB PO BID 12/27/23 Sildenafil Citrate (Sildenafil Citrate) 100 Mg Tab, 1 TAB PO DAILYPRN PRN for ERECTILE DYSFUNCTION 12/27/23 Metformin Hydrochloride (Metformin Hcl) 1,000 Mg Tab, 1 TAB PO BID 12/27/23 Review of Systems Seen and examined with the bedside On oxygen 2-3 L/min saturating more than 92% Reveals shortness of breath and chest pain has improved slightly Vital Signs Vital Signs Date Time Temp Pulse Resp B/P (MAP) Pulse Ox O2 Delivery O2 Flow Rate FiO2 05/03/25 15:00 67 24 120/74 (89) 92 05/03/25 13:25 Nasal Cannula* 3 32 05/03/25 13:20 98.7 98.7 Physical Exam Skin - Patients skin is warm and dry. HEENT - normocephalic, atraumatic, moist mucous membranes, no scleral icterus, no conjunctival pallor. Neck - full ROM, no LAD, JVP elevated Pulmonary - B/L coarse breath sounds in the lower lobes cardiovascular - regular S1,S2 heard, no added sounds, no murmurs appreciated peripheral pulses normal radial 2+, pedal 2+. 1+ extremity edema GI - soft, nontender abdomen. no hepatospleenomegaly. Bowel sounds normoactive Neurological - Patient is A/O X 4 . Bilateral upper extremity strength 5/5, bilateral lower extremity strength 5/5, no facial droop, normal speech, no tremor, no sensory deficiets. Labs/Diagnostic Data Labs Test 05/03/25 14:37 05/03/25 14:36 05/03/25 13:37 Range/Units Prothrombin Time 11.2 9.3-11.8 sec Prothrombin Time INR 1.06 0.9-1.15 Activated Partial Thromboplast Time 64.1 H 24.5-34.5 SEC D-Dimer, Quantitative 1.45 H 0.0-0.49 mg/L FEU Troponin I High Sensitivity 9544 *H </=54 ng/L Urine Color Yellow Yellow Urine Clarity Clear Clear Urine pH 6.0 5.0-9.0 Urine Specific Mathias 1.025 1.001-1.035 Urine Protein 3+ H Negative Urine Ketones Trace Negative Urine Blood Trace H Negative /uL Urine Nitrite Negative Negative Urine Bilirubin Negative Negative Urine Urobilinogen Normal Negative mg/dL Urine Leukocyte Esterase Negative Negative /uL Urine RBC 1 0 - 3 /hpf Urine Microscopic WBC 1 0-3 /HPF Urine Squamous Epithelial Cells Few <5 /hpf Urine Bacteria Few H None Seen /hpf Urine Glucose 4+ H Normal mg/dL White Blood Count 8.8 4.4-10.8 10^3/uL Red Blood Count 3.61 L 4.5-5.90 10^6/uL Hemoglobin 10.5 L 13.5-17.5 g/dL Hematocrit 32.2 L 41.0-53.0 % Mean Corpuscular Volume 89.1 80.0-100.0 fL Mean Corpuscular Hemoglobin 29.2 28.0-32.0 pg Mean Corpuscular Hemoglobin Concent 32.8 32.0-36.0 g/dL Red Cell Distribution Width 14.5 H 11.8-14.3 % Platelet Count 220 140-450 10^3/uL Mean Platelet Volume 8.6 6.9-10.8 fL Neutrophils (%) (Auto) 76.0 37.0-80.0 % Lymphocytes (%) (Auto) 14.3 10.0-50.0 % Monocytes (%) (Auto) 7.9 0.0-12.0 % Eosinophils (%) (Auto) 1.5 0.0-7.0 % Basophils (%) (Auto) 0.3 0.0-2.0 % Neutrophils # (Auto) 6.7 1.6-8.6 10 ^3/uL Lymphocytes # (Auto) 1.3 0.4-5.4 10 ^3/uL Monocytes # (Auto) 0.7 0-1.3 10 ^3/uL Eosinophils # (Auto) 0.1 0-0.8 10 ^3/uL Basophils # (Auto) 0 0-0.2 10 ^3/uL Nucleated Red Blood Cells 0.0 % Sodium Level 134 L 136-145 mmol/L Potassium Level 4.5 3.5-5.1 mmol/L Chloride Level 102 98-107 mmol/L Carbon Dioxide Level 18 L 20-31 mmol/L Anion Gap 14 5-15 Blood Urea Nitrogen 55 H 9-23 mg/dL Creatinine 3.89 H 0.700-1.30 mg/dL Glomerular Filtration Rate Calc 18 >90 mL/min BUN/Creatinine Ratio 14.1 10.0-20.0 Serum Glucose 272 H 74-106 mg/dL Calcium Level 8.7 8.7-10.4 mg/dL Assessment NSTEMI type 1 S/p coronary angiogram with severe Triple-vessel disease Atrial fibrillation with a RVR Cardiogenic shock Plan/Recommendation Given significant elevation in the troponin levels and typical chest pain patient was urgently taken to [facility]. Patient was seen to have severe triple-vessel disease, LVEF 20-25% with the elevated LVEDP and pulmonary capillary wedge pressure of 40 Impella device was inserted with improving cardiac output. Transferred to ICU for further care Patient would need urgent transferred to higher level of care for further evaluation Goals of care discussed with the patient for over 21 minutes. Plan discussed with Dr. Whittaker Plan discussed with: Patient NYHA Physical activity limitations: Class4(Severe)discomfort Date of Service: May 03, 2025 Billing Provider: ADAM WHITTAKER Sr., MD Cardiology Common Codes: 61678-[id number] INP/OBS CARE (High) LEANDRO MENESES RESIDENT May 03, 2025 17:09
[2025-05-03] MEDS: ATROPINE SULF 1 MG/10ml SYR ONE (17:42)
[2025-05-03] MEDS: ANGIOMAX 250 MG in SODIUM CHL 0.9% 50 ML IV ONE (19:00)
[2025-05-03] MEDS ORDERED: DEXTROSE (50%) 50ML SYRG IV PRN (19:15)
--- NOTE | 2025-05-03 19:20 | DVHOP2 ---
Operative Report - 2 Report Details Date: 05/03/25 Preop Diagnosis: Cardiogenic shock, shortness of breath. Postop Diagnosis: Cardiogenic shock. Impella placement. Severe cardiomyopathy. Triple-vessel coronary artery disease. Severe coronary insufficiency. Congestive heart failure Surgeon: Adam Miles MD Anesthesiologist: Local anesthetic given. No conscious sedation given. Anesthesia: Local Consent: The patient was informed of the risks and benefits of the procedure. These include but are not limited to complications of anesthesia, postoperative infection, incomplete relief of symptoms, recurrence of symptoms, damage to blood vessels, nerves and tendons, deep venous thrombosis, pulmonary embolism and possible need for repeat surgery in the future. Complications: No complications Findings: Severe triple-vessel disease. Severe cardiomyopathy. Indications for Surgery: Cardiogenic shock, congestive heart failure. Shortness of breath. Acute coronary syndrome. Elevated troponins. Name of Procedure Performed Right and left heart catheterization. Bilateral cine coronary angiography. Left ventriculography. Placement of Hodges-Akua catheter and right heart catheterization. Placement of Impella device. Procedure Details Procedure Details: Prior local anesthesia with 2% lidocaine to the right groin under fluoroscopic and ultrasound guidance, we gained access into the femoral vein into the femoral artery. Conscious sedation was not administered. We placed a six [place] sheath into the femoral vein and placed a Hodges-Akua catheter through which we were able to obtain pressures in the right atrium right ventricle pulmonary artery capillary wedge pressure positions where pressures were obtained and recorded. Cardiac output was determined by the thermodilution technique in triplicate. O2 saturations were not obtained. The right femoral artery we placed a six [place] sheath and performed an angiographic evaluation as well as ventriculography. Hemodynamics: Right atrial pressure was approximately 27 with a right ventricular pressure of 70/27. Pulmonary artery pressure was 70/40. Capillary wedge pressure was approximately 35. . End-diastolic pressure was approximately 35. Systolic arterial blood pressure was a proximally 115/80. Cardiac output was 3.5. Coronary anatomy: The RCA is occluded proximally. Intracoronary collaterals are seen to the acute marginals two and to the distal posterolateral branch. The left main is a medium caliber vessel it is normal. The circumflex is a large vessel with proximal narrowing of about 75-80% stenosis. A large marginal has a 60-70% proximal stenosis which is somewhat long and tubular the mid and distal marginal is for the most part free of significant disease with only moderate plaquing in appeared to be good target vessels for bypass. The circumflex proper is small and and in the distal AV groove. Distal collateralization from septals and from the distal marginals are noted to the posterolateral branches of the RCA. The distal posterolateral branches which appear from collaterals also appeared to be amenable to revascularization. Left anterior descending coronary artery is a large vessel. It is occluded after the large septal ball winder. There is a small to moderate diagonal which also has significant diffuse disease throughout. Intracoronary collaterals are noted to the mid LAD with a 2nd large septal collateralizing the distal posterolateral branches. Faint filling of the mid to distal LAD is noted. Notable calcification throughout all the coronary vasculature is present. Ventriculography in the TOLEDO projection shows an EF of about 20% with an enlarged left ventricle. Given the above mentioned anatomy and ventricular function we opted to place a Impella device. We performed a preclose with Perclose devices. We dilated with an eight 12 in 16 Lib[place] sheath and placed a 3.5 Impella device into the left ventricle successfully. Adequate augmentation and improvement in hemodynamics ensued. Angiomax was instituted and continue throughout the procedure. The peel-away sheath was then removed in the Impella was left in place. This was sutured with 0 Ethibond as well as the venous sheath and Hodges-Akua catheter which was left in place. An echocardiogram was then obtained to obtain documentation of proper positioning of the Impella device within the left ventricle and within the aortic outflow tract and aortic valve as reference. Impression: Elevated left ventricular end-diastolic pressure at rest with elevated pulmonary pressures. Cardiogenic shock. Severe triple-vessel disease. Congestive heart failure with a dilated left ventricle. Severe mitral insufficiency documented by echocardiogram. Calcified coronary vasculature. Successful placement of Impella device. Recommendations: We will continue with Impella support and transfer to higher level of care for heart transplantation. Initiate afterload reduction. Continue anticoagulation. Diuretic therapy. Supportive measures. Condition Critical Disposition Still a Patient Date of Service: May 03, 2025 Billing Provider: ADAM MILES Sr., MD Cardiology Common Codes: [id number] INP/OBS CARE (High) Cardiology Procedure Codes: 83993-XANS HEART CATH W/INTRA INJ, 63706-Y/R & L HEART CATH FOR LVG, 39359-RTV & PLCMT OF FLOW DIR CATH (Placement of Hodges-Akua catheter. Placement of Impella device.) ADAM MILES Sr., MD May 03, 2025 19:20
[2025-05-03] MEDS: DOBUTamine 1000MCG/ML 250 ML IV ONE (19:29)
[2025-05-03] MEDS: NITROGLYCERIN 50MG/250ML 250 ML IV ONE (19:29)
[2025-05-03] MEDS: FUROSEMIDE 40 MG/4 ML VIAL IV ONE (19:30)
[2025-05-03] MEDS: DOBUTamine 1000MCG/ML 250 ML IV SCH (19:30)
[2025-05-03] MEDS: FUROSEMIDE 20 MG/2 ML VIAL ONE (19:31)
[2025-05-03] MEDS: NITROGLYCERIN 50MG/250ML 250 ML IV SCH (19:37)
[2025-05-03 19:42] LABS: Hematocrit 31.8 % (41.0-53.0); Hemoglobin 10.5 g/dL (13.5-17.5)
[2025-05-03] MEDS ORDERED: SODIUM BICARB IV ONE (19:45)
[2025-05-03] MEDS ORDERED: D5W 5% IV ONE (19:45)
[2025-05-03] MEDS: FUROSEMIDE INJECTION 100 MG in SODIUM CHL 0.9% 100 ML IV SCH (19:45)
[2025-05-03 19:57] LABS: Base Excess -12.3 mmol/L (-2.0-3.0)
[2025-05-03 20:02] LABS: Albumin 4.1 g/dL (3.2-4.8); Anion Gap 14 (5-15); BUN/Creatinine Ratio 14.2 (10.0-20.0); Bilirubin, Total 0.4 mg/dL (0.2-1.0); Chloride 101 mmol/L (98-107); Magnesium 2.2 mg/dL (1.6-2.6); Potassium 4.8 mmol/L (3.5-5.1); Total Protein 7.3 g/dL (5.7-8.2)
[2025-05-03 20:07] LABS: Alanine Aminotransferase 79 U/L (7-40); Alkaline Phosphatase 36 U/L (46-116); Blood Urea Nitrogen 55 mg/dL (9-23); Calcium 8.6 mg/dL (8.7-10.4); Carbon Dioxide 18 mmol/L (20-31); Glucose 258 mg/dL (74-106); Sodium 133 mmol/L (136-145)
[2025-05-03] MEDS: AMIODARONE 360mg/200mL PREMIX 200 ML IV ONE (20:15)
[2025-05-03] MEDS: SODIUM BICARB IV ONE (20:15)
[2025-05-03] MEDS: D5W 5% IV ONE (20:15)
[2025-05-03] MEDS ORDERED: SODIUM CHL 0.9% 100 ML ONE (20:52)
--- NOTE | 2025-05-03 20:57 | DVHHPRES ---
History of Present Illness Resident Creating Document: BIRGIT WILKINSON RESDIENT History of Present Illness Patient is a 54-year-old male who presented to the ER with a chief complaint of shortness of breath and chest pain. Patient flew in from [facility] 3 days ago, reported that he was apparently well back there, started to have shortness of breath while at the airport in [facility] and since the last 3 days has had worsening shortness of breath associated with chest pain which is substernal, brought on by exertion and slightly relieved on resting, shortness of breath also worsened on walking around. Patient came to the ER today for further evaluation. On arrival chest x-ray showed bilateral congestion, initial 12 lead EKG showed atrial fibrillation in RVR, old inferior infarct, T-wave inversions in the V5 [place] [address]--> 9544. Past medical history: Insulin-dependent Type 2 diabetes mellitus, hypertension, ? Congestive heart failure, CKD Surgical history: Denies Social history: Patient denies current smoking, alcohol, drug use Home medications: Insulin glargine, insulin lispro, Farxiga, Lasix, statin Patient seen and examined at the bedside. Patient is feeling better since admi ssion but still complaining of shortness of breaths and chest discomfort. Review of Systems Allergies: Coded Allergies: NO KNOWN ALLERGIES (Unverified , 06/23/17) Medications Current Medications Medications Dose Ordered Sig/Ochoa Route Start Time Stop Time Status Last Admin Dose Admin Dobutamine HCl/ Dextrose 250 ml @ 30.3 mls/hr Q8H16M IV 05/03/25 19:15 05/03/25 19:30 30.3 MLS/HR Furosemide 100 mg/ Sodium Chloride 110 ml @ 4.4 mls/hr Q24H IV 05/03/25 19:15 05/03/25 19:45 4.4 MLS/HR Diagnostic Test (Pha) 1 strip Q6HR 05/04/25 00:00 Insulin Human Regular Q6HR SC 05/04/25 00:00 Dextrose 50 ml UD PRN IV 05/03/25 19:15 Pantoprazole Sodium 40 mg BID IV 05/03/25 22:00 Atorvastatin Calcium 80 mg DAILY PO 05/04/25 10:00 Nitroglycerin 250 ml @ 1.5 mls/hr Q24H IV 05/03/25 19:30 05/03/25 19:37 1.5 MLS/HR Exam Vital Signs Vital Signs Date Time Temp Pulse Resp B/P (MAP) Pulse Ox O2 Delivery O2 Flow Rate FiO2 05/03/25 20:40 149/71 05/03/25 20:15 129 13 95 05/03/25 18:50 97.1 97.1 05/03/25 13:25 Nasal Cannula* 3 32 Exam General Appearance: Alert, Oriented X3, Cooperative, in moderate respiratory distress HEENT: Atraumatic, PERRLA, EOMI, Mucous membrane moist/pink Respiratory: Bilateral crackles Cardiovascular: Regular rate, Normal S1, Normal S2, No murmurs, no chest wall tenderness Abdominal: Normal bowel sounds, Soft, No tenderness, No hepatospenomegaly, No masses Extremities: Bilateral grade 2 pedal edema Skin: No rashes, No breakdown, No significant lesion Neuro: Normal gait, Normal speech, Strength at 5/5 X4 ext, Normal tone, Sensation intact, Cranial nerves 3-12 NL, Reflexes 2+ Psych/Mental Status: Mental status NL, Mood NL Labs/Xrays Labs Test 05/03/25 19:44 05/03/25 19:23 05/03/25 14:37 05/03/25 14:36 Range/Units Blood Gas Specimen Type Arterial Blood Gas Sample Site Right radial Blood Gas Patient Temperature 37.0 Arterial Blood Date Drawn [id number] Arterial Blood pH 7.329 L 7.350-7.450 Arterial Blood Partial Pressure CO2 23.3 L 35.0-48.0 mmHg Arterial Blood Partial Pressure O2 84.9 83.0-108.0 mmHg Arterial Blood HCO3 12.0 L 21.0-28.0 mmol/L Arterial Blood Oxygen Saturation 94.0 94.0-98.0 % Arterial Blood Base Excess -12.3 L -2.0-3.0 mmol/L Arterial Blood Oxyhemoglobin 93.3 L 94.0-98.0 % Arterial Blood Carboxyhemoglobin 0.7 0.5-1.5 % Arterial Blood Methemoglobin 0.0 0.0-1.5 % Arterial Blood Deoxyhemoglobin 6.0 H 0.0-5.0 % Aidan Test Modified Blood Gas Total Hemoglobin 10.80 L 13.5-17.5 g/dL Blood Gas Liter Flow 5.00 Blood Gas Modality Nasal cannula FiO2 % 40.0 Hemoglobin 10.5 L 13.5-17.5 g/dL Hematocrit 31.8 L 41.0-53.0 % Sodium Level 133 L 136-145 mmol/L Potassium Level 4.8 3.5-5.1 mmol/L Chloride Level 101 98-107 mmol/L Carbon Dioxide Level 18 L 20-31 mmol/L Anion Gap 14 5-15 Blood Urea Nitrogen 55 H 9-23 mg/dL Creatinine 3.86 H 0.700-1.30 mg/dL Glomerular Filtration Rate Calc 18 >90 mL/min BUN/Creatinine Ratio 14.2 10.0-20.0 Serum Glucose 258 H 74-106 mg/dL Calcium Level 8.6 L 8.7-10.4 mg/dL Magnesium Level 2.2 1.6-2.6 mg/dL Total Bilirubin 0.4 0.2-1.0 mg/dL Aspartate Amino Transferase (AST) 167 H 13-40 U/L Alanine Aminotransferase (ALT) 79 H 7-40 U/L Alkaline Phosphatase 36 L 46-116 U/L Total Protein 7.3 5.7-8.2 g/dL Albumin 4.1 3.2-4.8 g/dL Prothrombin Time 11.2 9.3-11.8 sec Prothrombin Time INR 1.06 0.9-1.15 Activated Partial Thromboplast Time 64.1 H 24.5-34.5 SEC D-Dimer, Quantitative 1.45 H 0.0-0.49 mg/L FEU Troponin I High Sensitivity 9544 *H </=54 ng/L Urine Color Yellow Yellow Urine Clarity Clear Clear Urine pH 6.0 5.0-9.0 Urine Specific [place] 1.025 1.001-1.035 Urine Protein 3+ H Negative Urine Ketones Trace Negative Urine Blood Trace H Negative /uL Urine Nitrite Negative Negative Urine Bilirubin Negative Negative Urine Urobilinogen Normal Negative mg/dL Urine Leukocyte Esterase Negative Negative /uL Urine RBC 1 0 - 3 /hpf Urine Microscopic WBC 1 0-3 /HPF Urine Squamous Epithelial Cells Few <5 /hpf Urine Bacteria Few H None Seen /hpf Urine Glucose 4+ H Normal mg/dL Test 05/03/25 13:37 Range/Units White Blood Count 8.8 4.4-10.8 10^3/uL Red Blood Count 3.61 L 4.5-5.90 10^6/uL Mean Corpuscular Volume 89.1 80.0-100.0 fL Mean Corpuscular Hemoglobin 29.2 28.0-32.0 pg Mean Corpuscular Hemoglobin Concent 32.8 32.0-36.0 g/dL Red Cell Distribution Width 14.5 H 11.8-14.3 % Platelet Count 220 140-450 10^3/uL Mean Platelet Volume 8.6 6.9-10.8 fL Neutrophils (%) (Auto) 76.0 37.0-80.0 % Lymphocytes (%) (Auto) 14.3 10.0-50.0 % Monocytes (%) (Auto) 7.9 0.0-12.0 % Eosinophils (%) (Auto) 1.5 0.0-7.0 % Basophils (%) (Auto) 0.3 0.0-2.0 % Neutrophils # (Auto) 6.7 1.6-8.6 10 ^3/uL Lymphocytes # (Auto) 1.3 0.4-5.4 10 ^3/uL Monocytes # (Auto) 0.7 0-1.3 10 ^3/uL Eosinophils # (Auto) 0.1 0-0.8 10 ^3/uL Basophils # (Auto) 0 0-0.2 10 ^3/uL Nucleated Red Blood Cells 0.0 % SEPSIS Sepsis Screen Date sepsis recognized/suspect: May 03, 2025 Time Sepsis recognized/suspect: 1324 Recent Procedure: No On Antibiotic Therapy: No Respiratory Rate >20: Yes Heart Rate >90: Yes Temp<36 C (96.8 F) or >38.3 C: No SBP <90 or MAP <65 mmHG: No New Acute Mental Status Change: No Is the patient on CPAP, BIPAP,: No Physician Orders Chest Portable (05/03/25 13:17) Electrocardigram (05/03/25 15:26) Electrocardigram (05/03/25 17:26) Ct Ab Pel Wo Con-No Oral Or Iv (05/03/25 14:46) Cl Left Heart Cath (05/03/25 15:33) Insert/Manage Urinary Catheter QSHIFT (05/03/25 18:53) Apply Knee Immobilizer (05/03/25 18:53) Post Cath Vital Signs Q 15min (05/03/25 18:53) Post Cath Activity Protocol (05/03/25 18:53) Post Cath Sheaths Protocol (05/03/25 18:53) Communication Order (05/03/25 18:53) * Flatwork Presser Consult (05/03/25 ) Dobutamine 1000mcg/Ml (Dobutrex) (05/03/25 19:15) Sodium Chl 0.9% (So... W/Furosemide Inje (05/03/25 19:15) Glucose Blood (Accu-Chek Comfort Curve T (05/04/25 00:00) Insulin R (Human) (Insulin R) (05/04/25 00:00) Dextrose 50% Syringe (05/03/25 19:15) Comprehensive Metabolic Panel (05/04/25 04:00) Hemoglobin & Hematocrit (05/04/25 04:00) Cardiac Diet-2gna,Lofat,Lochol (05/04/25 Breakfast) Pantoprazole (Protonix) (05/03/25 22:00) Atorvastatin (Lipitor) (05/04/25 10:00) Nitroglycerin 50mg/250ml (Tridil) (05/03/25 19:30) Type And Screen (05/03/25 19:23) Abg W/ Co-Ox (05/03/25 19:41) Amiodarone 450mg/250ml Ae (Cordarone) (05/03/25 20:15) Sodium Bicarb 50meq/50ml Vial (05/03/25 20:15) Admit (05/03/25 20:55) Code Status (05/03/25 20:55) Review Orders With Adm.Md (05/03/25 20:55) Notify Md Of Changes From Base (05/03/25 20:55) Advance Directive (05/03/25 20:55) Patient Condition (05/03/25 20:55) Allergies (05/03/25 20:55) Nitroglycerin Sublingual (Ntrostat Subli (05/03/25 21:00) Morphine Sulfate Injection (05/03/25 21:00) Oxygen By Nasal Cannula (05/03/25 20:55) Stat Ekg For Chest Pain (05/03/25 20:55) Notify Md Of Changes From Base (05/03/25 20:55) Mental Health Clinician For 24 Hours (05/03/25 20:55) Emergency Dysrhythmia Protocol (05/03/25 20:55) Rhythm Strips Once Every Shift (05/03/25 20:55) Vital Signs Date Time Temp Pulse Resp B/P (MAP) Pulse Ox O2 Delivery O2 Flow Rate FiO2 05/03/25 20:40 149/71 05/03/25 20:35 139/81 05/03/25 20:20 131/79 05/03/25 20:15 142/83 05/03/25 20:15 129 13 147/82 (103) 95 05/03/25 20:00 147/93 05/03/25 20:00 147/93 05/03/25 20:00 135 15 147/93 (111) 95 05/03/25 19:45 121/91 05/03/25 19:45 138 14 121/91 (101) 99 05/03/25 19:37 168/87 05/03/25 19:30 125/95 05/03/25 19:30 125/95 05/03/25 19:30 96 28 125/95 (105) 98 05/03/25 19:00 64 21 121/94 (103) 96 05/03/25 18:50 97.1 64 28 124/90 (101) 96 97.1 05/03/25 15:00 67 24 120/74 (89) 92 05/03/25 14:41 64 05/03/25 13:25 118 30 99 Nasal Cannula* 3 32 05/03/25 13:24 140 05/03/25 13:20 98.7 119 30 116/79 (91) 91 98.7 05/03/25 13:09 129 Laboratory Tests Test 05/03/25 13:37 White Blood Count 8.8 10^3/uL (4.4-10.8) Medications Medications Dose Ordered Sig/Ochoa Route Start Time Stop Time Status Last Admin Dose Admin Amiodarone HCl 100 ml @ 600 mls/hr ONCE ONCE IV 05/03/25 13:30 05/03/25 19:17 DC 05/03/25 13:43 600 MLS/HR Amiodarone HCl 250 ml @ 33.33 mls/ hr Q7H31M ONCE IV 05/03/25 13:30 05/03/25 19:17 DC 05/03/25 13:45 33.33 MLS/HR Amiodarone HCl 250 ml @ 33.33 mls/ hr Q7H31M ONCE IV 05/03/25 20:15 05/04/25 03:45 05/03/25 20:15 33.33 MLS/HR Bivalirudin 250 mg STK-MED ONCE IV 05/03/25 15:46 05/03/25 15:45 DC 05/03/25 15:46 250 MG Bivalirudin 250 mg STK-MED ONCE IV 05/03/25 18:02 05/03/25 18:02 DC 05/03/25 18:02 250 MG Bivalirudin 250 mg/Sodium Chloride 50 ml @ 35.35 mls/ hr Q1H25M ONCE IV 05/03/25 19:00 05/03/25 20:24 DC 05/03/25 19:00 35.35 MLS/HR Dobutamine HCl/ Dextrose 250 ml @ 30.3 mls/hr Q8H16M IV 05/03/25 19:15 05/03/25 19:30 30.3 MLS/HR Furosemide 40 mg ONCE ONCE IV 05/03/25 19:15 05/03/25 19:20 DC 05/03/25 19:30 40 MG Furosemide 100 mg/ Sodium Chloride 110 ml @ 4.4 mls/hr Q24H IV 05/03/25 19:15 05/03/25 19:45 4.4 MLS/HR Heparin Sodium (Porcine) 5,000 units ONCE ONCE IV 05/03/25 14:30 05/03/25 14:31 DC 05/03/25 14:35 5,000 UNITS Nitroglycerin 250 ml @ 1.5 mls/hr Q24H IV 05/03/25 19:30 05/03/25 19:37 1.5 MLS/HR Assessment/Plan Assessment/Plan Cardiogenic shock, due to myocardial infarction NSTEMI, type 1 Acute hypoxic respiratory failure, due to cardiogenic shock Acute on chronic systolic heart failure Volume overload due to above Atrial fibrillation, with RVR Acquired hypercoagulability Morbid obesity Diabetes type 2 Hypertension Dyslipidemia Smoker Medication nonadherence Plan/recommendation * Cardiology consulted, performed coronary angiogram, found severe triple-vessel disease, recommended higher level of care transfer for possible CABG/heart transplant * Continue amiodarone drip, Angiomax, nitroglycerin drip, Lasix drip, and dobutamine * Continue aspirin, and atorvastatin * Lantus 20 units daily and insulin according to moderate sliding scale * Pain management DIET: NPO DVT PROPHYLAXIS: On Angiomax CODE STATUS: Goal of care discussed for more than 18 minutes, full code DISPOSITION: ICU status Patient's status and plan discussed with the patient. Case discussed with Dr. Perez. Plan discussed with: Patient, Other My Orders Orders - BIRGIT WILKINSON RESDIMORGAN Procedure Category Date Status Time Admit ADMIT 05/03/25 Verified 20:55 Code Status CODE 05/03/25 Verified 20:55 Review Orders With [facility] 05/03/25 Verified Adm. 20:55 Notify Md Of Changes [facility] 05/03/25 Verified From Base 20:55 Advance Directive [facility] 05/03/25 Verified 20:55 Patient Condition ORDERS 05/03/25 Verified 20:55 Allergies [facility] 05/03/25 Verified 20:55 Nitroglycerin [facility] 05/03/25 Verified Sublingual (Ntrostat 21:00 Morphine Sulfate [facility] 05/03/25 Verified Injection 21:00 Oxygen By Nasal RT 05/03/25 Verified Cannula 20:55 Stat Ekg For Chest [facility] 05/03/25 Verified Pain 20:55 Notify Of Changes [facility] 05/03/25 Verified From Base 20:55 Mental Health Clinician For [facility] 05/03/25 Verified 24 Hours 20:55 Emergency Dysrhythmia [facility] 05/03/25 Verified Protocol 20:55 Rhythm Strips Once [facility] 05/03/25 Verified Every Shift 20:55 Visit Coding STANDARD RES Billing Provider: MERCEDEZ PEREZ MD Date of Service if different f: May 04, 2025 Common Visit Codes: 22344-EGTRXCV INP/OBS CARE (HIGH) Secondary Visit Codes: 87131-[id number] CARE PLAN 30 MINUTES BIRGIT WILKINSON RESDIENT May 03, 2025 20:57
[2025-05-03] MEDS ORDERED: NITROGLYCERIN 0.4 MG SL TAB SL PRN (21:00)
[2025-05-03] MEDS ORDERED: MORPHINE SULFATE INJ 2 MG/ml SYRG IV PRN (21:00)
[2025-05-03] MEDS ORDERED: PANTOPRAZOLE 40 MG/10 ML VIAL INJ IV SCH (22:00)
[2025-05-03] MEDS: PANTOPRAZOLE 40 MG/10 ML VIAL INJ IV SCH (22:39)
--- NOTE | 2025-05-03 23:06 | DVHDSRES ---
Discharge Summary Date of Admission Resident Creating Document: BIRGIT WILKINSON RESDIENT May 03, 2025 at 20:55 Date of Discharge: May 03, 2025 Labs/Diagnostic Data: Laboratory Results Test 05/03/25 22:30 05/03/25 19:44 05/03/25 19:23 05/03/25 14:37 Blood Gas Specimen Type Arterial Blood Gas Sample Site Right radial Blood Gas Patient Temperature 37.0 Arterial Blood Date Drawn [id number] Arterial Blood pH 7.329 (7.350-7.450) Arterial Blood Partial Pressure CO2 23.3 mmHg (35.0-48.0) Arterial Blood Partial Pressure O2 84.9 mmHg (83.0-108.0) Arterial Blood HCO3 12.0 mmol/L (21.0-28.0) Arterial Blood Oxygen Saturation 94.0 % (94.0-98.0) Arterial Blood Base Excess -12.3 mmol/L (-2.0-3.0) Arterial Blood Oxyhemoglobin 93.3 % (94.0-98.0) Arterial Blood Carboxyhemoglobin 0.7 % (0.5-1.5) Arterial Blood Methemoglobin 0.0 % (0.0-1.5) Arterial Blood Deoxyhemoglobin 6.0 % (0.0-5.0) Aidan Test Modified Blood Gas Total Hemoglobin 10.80 g/dL (13.5-17.5) Blood Gas Liter Flow 5.00 Blood Gas Modality Nasal cannula FiO2 % 40.0 Hemoglobin 10.5 g/dL (13.5-17.5) Hematocrit 31.8 % (41.0-53.0) Sodium Level 133 mmol/L (136-145) Potassium Level 4.8 mmol/L (3.5-5.1) Chloride Level 101 mmol/L (98-107) Carbon Dioxide Level 18 mmol/L (20-31) Anion Gap 14 (5-15) Blood Urea Nitrogen 55 mg/dL (9-23) Creatinine 3.86 mg/dL (0.700-1.30) Glomerular Filtration Rate Calc 18 mL/min (>90) BUN/Creatinine Ratio 14.2 (10.0-20.0) Serum Glucose 258 mg/dL (74-106) Hemoglobin A1c 6.9 % A1C (<5.7) Calcium Level 8.6 mg/dL (8.7-10.4) Magnesium Level 2.2 mg/dL (1.6-2.6) Total Bilirubin 0.4 mg/dL (0.2-1.0) Aspartate Amino Transferase (AST) 167 U/L (13-40) Alanine Aminotransferase (ALT) 79 U/L (7-40) Alkaline Phosphatase 36 U/L (46-116) Total Protein 7.3 g/dL (5.7-8.2) Albumin 4.1 g/dL (3.2-4.8) Prothrombin Time 11.2 sec (9.3-11.8) Prothrombin Time INR 1.06 (0.9-1.15) Activated Partial Thromboplast Time 64.1 SEC (24.5-34.5) D-Dimer, Quantitative 1.45 mg/L FEU (0.0-0.49) Troponin I High Sensitivity 9544 ng/L (</=54) Test 05/03/25 14:36 05/03/25 13:37 Urine Color Yellow (Yellow) Urine Clarity Clear (Clear) Urine pH 6.0 (5.0-9.0) Urine Specific [place] 1.025 (1.001-1.035) Urine Protein 3+ (Negative) Urine Ketones Trace (Negative) Urine Blood Trace /uL (Negative) Urine Nitrite Negative (Negative) Urine Bilirubin Negative (Negative) Urine Urobilinogen Normal mg/dL (Negative) Urine Leukocyte Esterase Negative /uL (Negative) Urine RBC 1 /hpf (0 - 3) Urine Microscopic WBC 1 /HPF (0-3) Urine Squamous Epithelial Cells Few /hpf (<5) Urine Bacteria Few /hpf (None Seen) Urine Glucose 4+ mg/dL (Normal) White Blood Count 8.8 10^3/uL (4.4-10.8) Red Blood Count 3.61 10^6/uL (4.5-5.90) Mean Corpuscular Volume 89.1 fL (80.0-100.0) Mean Corpuscular Hemoglobin 29.2 pg (28.0-32.0) Mean Corpuscular Hemoglobin Concent 32.8 g/dL (32.0-36.0) Red Cell Distribution Width 14.5 % (11.8-14.3) Platelet Count 220 10^3/uL (140-450) Mean Platelet Volume 8.6 fL (6.9-10.8) Neutrophils (%) (Auto) 76.0 % (37.0-80.0) Lymphocytes (%) (Auto) 14.3 % (10.0-50.0) Monocytes (%) (Auto) 7.9 % (0.0-12.0) Eosinophils (%) (Auto) 1.5 % (0.0-7.0) Basophils (%) (Auto) 0.3 % (0.0-2.0) Neutrophils # (Auto) 6.7 10 ^3/uL (1.6-8.6) Lymphocytes # (Auto) 1.3 10 ^3/uL (0.4-5.4) Monocytes # (Auto) 0.7 10 ^3/uL (0-1.3) Eosinophils # (Auto) 0.1 10 ^3/uL (0-0.8) Basophils # (Auto) 0 10 ^3/uL (0-0.2) Nucleated Red Blood Cells 0.0 % Other Laboratory Tests 05/03/25 19:23 05/03/25 13:37 Brief Hx & Hospital Course: History of present illness: Patient is a 54-year-old male who presented to the ER with a chief complaint of shortness of breath and chest pain. Patient flew in from [facility] 3 days ago, reported that he was apparently well back there, started to have shortness of breath while at the airport in [facility] and since the last 3 days has had worsening shortness of breath associated with chest pain which is substernal, brought on by exertion and slightly relieved on resting, shortness of breath also worsened on walking around. Patient came to the ER today for further evaluation. On arrival chest x-ray showed bilateral congestion, initial 12 lead EKG showed atrial fibrillation in RVR, old inferior infarct, T-wave inversions in the [place] [address]--> 9544. Past medical history: Insulin-dependent Type 2 diabetes mellitus, hypertension, ? Congestive heart failure, CKD Surgical history: Denies Social history: Patient denies current smoking, alcohol, drug use Home medications: Insulin glargine, insulin lispro, Farxiga, Lasix, statin Hospital course: The patient was admitted on the line of cardiogenic shock. Cardiology consulted, performed coronary angiogram, found to have triple-vessel disease, and recommended higher level of care transfer for possible CABG/cardiac transplant. Due to cardiogenic shock, the patient was started on dobutamine and Impella device was put. The patient also had AFib with the RVR, the patient was given amiodarone drip. Due to high burden of thrombus, the patient was continued with Angiomax. Due to patient's chest pain, high blood pressure and heart failure the patient was also given nitroglycerin. The patient was also given aspirin atorvastatin and due to hyperglycemia/diabetes the patient was given Lantus and moderate sliding scale. The patient was accepted at [place] for further management, and the patient was transferred. Final diagnosis: Cardiogenic shock, due to myocardial infarction NSTEMI, type 1 Acute hypoxic respiratory failure, due to cardiogenic shock Acute on chronic systolic heart failure Volume overload due to above Atrial fibrillation, with RVR Acquired hypercoagulability Morbid obesity Diabetes type 2 Hypertension Dyslipidemia Smoker Medication nonadherence Condition at Discharge: Critical Final Diagnosis/Problems List Cardiogenic shock Discharge Disposition: Acute Care Facility Discharge Instruct/Medications Diet: Cardiac 2g Na,low cholest Activity: Bed rest Follow Up/Referral: Transfer to [facility] Medications: Per transfer paper Scheduled Furosemide (Lasix), 40 MG PO DAILY Glipizide (Glipizide), 1 TAB PO BID, (Reported) Metformin Hydrochloride (Metformin Hcl), 1 TAB PO BID, (Reported) Simvastatin (Simvastatin), 1 TAB PO DAILY, (Reported) Scheduled PRN Pantoprazole Sodium Sesquihydr (Pantoprazole Sodium), 40 MG PO DAILYP PRN Sildenafil Citrate (Sildenafil Citrate), 1 TAB PO DAILYPRN PRN for ERECTILE DYSFUNCTION, (Reported) Discharge Statement: "Patient was advised to return to the ER or call 911 if any headaches, dizziness, shortness of breath, chest pain, abdominal pain, bleeding, fevers, or worsening of medical condition. Patient was counseled about treatment plan, medications, possible side effects, patientverbalized understanding. All questions were answered to the best of my ability. This discharge took greater then 30 minutes in planning, reviewing documentation, counseling the patient, and discussing with other team members." ASSESSMENT ASSESSMENT Assessment Cardiogenic shock Visit Coding STANDARD RES Billing Provider: MERCEDEZ PEREZ MD Date of Service if different f: May 03, 2025 Common Visit Codes: [id number] CARE 30-74 MIN (crit care time 60 minutes) BIRGIT WILKINSON May 03, 2025 23:06 MERCEDEZ PEREZ MD May 06, 2025 23:51
[2025-05-03 23:07] LABS: Amphetamine Screen, Urine Neg (NEGATIVE); Barbiturate Scree,Urine Neg (NEGATIVE); Benzodiazephine Screen, Urine Neg (NEGATIVE); Cannabinoid Screen, Urine Neg (NEGATIVE); Cocaine Screen, Urine Neg (NEGATIVE); Opiate Scree,Urine Neg (NEGATIVE); Phencyclidine Screen, Urine Neg (NEGATIVE)
[2025-05-04] VITALS (21 sets, daily range): BP systolic 37–140; BP diastolic 15–84; PULSE 84–139; RESP 14–27; TEMP 98.6–99.9; O2SAT 96–100
[2025-05-04] MEDS: ANGIOMAX 250 MG in SODIUM CHL 0.9% 50 ML IV ONE (00:17)
[2025-05-04] MEDS: ACCU-CHEK COMFORT CURVE STRIP VI SCH (00:21)
[2025-05-04] MEDS: InsuLIN REG 1unit/0.01ml Soln (100units/ml) SC SCH (00:23)
[2025-05-04 01:04] LABS: Hematocrit 29.2 % (41.0-53.0); Hemoglobin 9.6 g/dL (13.5-17.5); Mean Corpuscular Hemoglobin 28.9 pg (28.0-32.0); Mean Corpuscular Volume 87.6 fL (80.0-100.0); Nucleated Red Blood Cells % 0.0 %
[2025-05-04 01:19] LABS: Albumin 3.5 g/dL (3.2-4.8); Anion Gap 12 (5-15); BUN/Creatinine Ratio 17.3 (10.0-20.0); Bilirubin, Total 0.5 mg/dL (0.2-1.0); Chloride 103 mmol/L (98-107); Magnesium 2.0 mg/dL (1.6-2.6); Potassium 4.0 mmol/L (3.5-5.1); Total Protein 6.7 g/dL (5.7-8.2)
[2025-05-04 01:21] LABS: Alanine Aminotransferase 73 U/L (7-40); Alkaline Phosphatase 33 U/L (46-116); Blood Urea Nitrogen 62 mg/dL (9-23); Calcium 8.2 mg/dL (8.7-10.4); Carbon Dioxide 19 mmol/L (20-31); Glucose 225 mg/dL (74-106); Sodium 134 mmol/L (136-145)
[2025-05-04 01:31] LABS: INR 3.14 (0.9-1.15); Prothrombin Time 29.7 sec (9.3-11.8)
[2025-05-04 01:33] LABS: Partial Thromboplastin Time 108.7 SEC (24.5-34.5)
[2025-05-04] MEDS: INSULIN LANTUS (GLARGINE) 1 /0.01ml (100units/ml) SC ONE (01:36)
[2025-05-04] MEDS ORDERED: INSULIN LANTUS (GLARGINE) 1 /0.01ml (100units/ml) SC SCH (10:00)
[2025-05-04] MEDS ORDERED: ATORVASTATIN 20 MG TAB PO SCH (10:00)
[2025-05-04] MEDS ORDERED: ASPirin-EC 81 mg tab PO SCH (10:00)
--- NOTE | 2025-05-04 10:29 | DVHSR ---
APPROVED REPORT EXAM: Two-dimensional and M-mode echocardiogram with Doppler and color Doppler. Blood Pressure: 107/78 mmHg INDICATION ELEVATED TROPS RISK FACTORS Height: 5'7, Weight: 222 DIMENSIONS LVDd 5.0 (3.8-5.7cm) LA (2D) 5.1 (1.9-4.0cm) Aortic Root 3.3 (2.0-3.7cm) LVDs 3.9 (2.5-4.0cm) LA (MM) (1.9-4.0cm) Aortic Cusp Exc 1.6 (1.5-2.0cm) EF (%) 40.0 (55-70%) Rt. Atrium 4.6 (1.9-4.0cm) Asc. Aorta 3.2 cm IVSd 1.1 (0.7-1.1cm) RV (D) 4.1 (1.8-2.4cm) PWd 1.0 (0.7-1.1cm) Mitral Valve Mitral Mitral Stenosis E wave 1.32m/s MV Mean GR. mmHg A wave 0.52m/s MV Peak GR. 76mmHg E/A ratio 2.5 2D MVA cm2 DECEL Time 202ms PRESS 1/2 Time ms Aortic Valve Aortic Valve Aortic Stenosis V1 0.73m/s AO Mean GR. mmHg V2 1.07m/s AO Peak GR. 5mmHg LVOT Diameter 2.4 (1.8-2.4cm) Doppler HEBER 3.08cm2 Tricuspid Valve TR Velocity 2.06m/s RVSP 32mmHg Other Information Quality : Technically Limited Rhythm : Technically limited study due to body habitus.patient position. Conclusion Biatrial and biventricular enlargement. Mild mitral annular calcification. The aortic and pulmonic appear to be structurally normal. Left ventricular function is diminished. EF is approximately 25% with severe global hypokinesis. Anterior and apical hypokinesis inferior apical hypokinesis. Right ventricular function Moderate mitral insufficiency. Moderate tricuspid regurgitation. No pericardial effusion masses or vegetations.
== END 2025-05-04 03:00 | disposition short-term general hospital (02) | DRG 178 ==
LOC: ER 12:49 → OVERFLOW 20:55 → ICU WEST 21:04
PROVIDERS: ATTEND Internal Medicine
PROC: 4A023N8 Measurement of Cardiac Sampling and Pressure, Bilateral, Percutaneous Approach (ICD-10-PCS; principal; 2025-05-03)
PROC: 02HA3RZ Insertion of Short-term External Heart Assist System into Heart, Percutaneous Approach (ICD-10-PCS; 2025-05-03)
PROC: 5A0221D Assistance with Cardiac Output using Impeller Pump, Continuous (ICD-10-PCS; 2025-05-03)
PROC: B211YZZ Fluoroscopy of Multiple Coronary Arteries using Other Contrast (ICD-10-PCS; 2025-05-03)
PROC: B215YZZ Fluoroscopy of Left Heart using Other Contrast (ICD-10-PCS; 2025-05-03)
DX: I21.4 Non-ST elevation (NSTEMI) myocardial infarction (principal); R57.0 Cardiogenic shock; I50.23 Acute on chronic systolic (congestive) heart failure; J96.01 Acute respiratory failure with hypoxia; D68.59 Other primary thrombophilia; I34.0 Nonrheumatic mitral (valve) insufficiency; E66.01 Morbid (severe) obesity due to excess calories; N18.9 Chronic kidney disease, unspecified; E11.22 Type 2 diabetes mellitus with diabetic chronic kidney disease; I13.0 Hypertensive heart and chronic kidney disease with heart failure and stage 1 through stage 4 chronic kidney disease, or unspecified chronic kidney disease; I42.9 Cardiomyopathy, unspecified; I25.10 Atherosclerotic heart disease of native coronary artery without angina pectoris; E78.5 Hyperlipidemia, unspecified; E11.65 Type 2 diabetes mellitus with hyperglycemia; I48.91 Unspecified atrial fibrillation; Z87.891 Personal history of nicotine dependence; Z79.4 Long term (current) use of insulin; Z91.148 Patient's other noncompliance with medication regimen for other reason; Z83.3 Family history of diabetes mellitus; Z82.49 Family history of ischemic heart disease and other diseases of the circulatory system; Z68.34 Body mass index [BMI] 34.0-34.9, adult
CPT/HCPCS: 33990; 36415; 36600; 71045; 74176; 80048; 80053; 80307; 81001; 82805; 82962; 83036; 83615; 83735; 84484; 85014; 85018; 85025; 85379; 85610; 85730; 86850; 86900; 86901; 87081; 87086; 93005; 93306; 93460; 96365; 96375; 99152; 99291; 99292; G0378; J1815; J2250; J2470; Q9967